=== PATIENT | male | born 1965 | race Hispanic/Latino ===

== ENCOUNTER 2018-02-10 12:52 | Emergency (ER) | payer MEDICAID, OTHER ==
[2018-02-10 12:55] VITALS: BMI 23.3
[2018-02-10 13:03] VITALS: O2SAT 100
[2018-02-10] MEDS ORDERED: Multivitamin (MVI) 10 ML, Thiamine 100 MG, Folic Acid 1 MG in Sodium Chloride 0.9% 1,00... IV STA (13:41)
[2018-02-10] MEDS ORDERED: Sodium Chloride 0.9% 1,000 ML ONE (14:02)
[2018-02-10 14:27] LABS: BASO # 0.1 K/uL (0.0-0.2); BASO % 2.2 % (0.0-2.0); EOS # 0.1 K/uL (0.0-0.7); EOS % 4.2 % (0.0-4.0); HEMOGLOBIN 9.1 g/dL (12.0-18.0); LYMPH # 0.7 K/uL (1.0-4.3); LYMPH % 22.6 % (20.0-40.0); MEAN CELL VOLUME 99.3 fL (80.0-94.0); MEAN CORPUSCULAR HEMOGLOBIN 32.6 pg (27.0-31.0); MEAN CORPUSCULAR HGB CONC 32.9 g/dL (33.0-37.0); MEAN PLATELET VOLUME 8.2 fL (7.2-11.7); MONO # 0.4 K/uL (0.0-0.8); MONO % 12.4 % (0.0-10.0); NEUT # 1.9 K/uL (1.8-7.0); NEUT % 58.6 % (50.0-75.0); NRBC % 0.1 % (0.0-2.0); RBC 2.77 Mil/uL (4.40-5.90); RED CELL DISTRIBUTION WIDTH 19.7 % (11.5-14.5); WHITE BLOOD COUNT 3.3 K/uL (4.8-10.8)
[2018-02-10 14:43] LABS: CALCIUM 7.6 mg/dl (8.6-10.4); GFR AFRICAN-AMERICAN > 60; GFR NON-AFRICAN AMERICAN > 60
--- NOTE | 2018-02-10 15:10 | RAD ---
PROCEDURE: Radiographs of the Chest and Left Ribs. HISTORY: Left chest wall pain/tenderness COMPARISON: Correlation is made to CT scan of the abdomen and pelvis performed 01/27/2018 at [facility]. TECHNIQUE: Frontal radiograph of the chest and multiple oblique radiographs of the left ribs were obtained. FINDINGS: LEFT RIBS: Nondisplaced fractures of the posterior left 10th and 11th ribs. LUNGS: Clear. PLEURA: No pneumothorax or pleural fluid. CARDIOVASCULAR: Normal sized heart. No pulmonary vascular congestion. OTHER FINDINGS: None. IMPRESSION: Nondisplaced fractures of the posterior left 10th and 11th ribs, previously reported on recent CT scan.
[2018-02-10 15:11] LABS: ALB/GLOB RATIO 0.8 (1.0-2.1); ALBUMIN 3.3 g/dL (3.5-5.0); ALT/SGPT 21 U/L (21-72); AST/SGOT 142 U/L (17-59); BLOOD UREA NITROGEN 19 mg/dL (9-20)
[2018-02-10 16:03] LABS: ALB/GLOB RATIO 0.7 (1.0-2.1); ALBUMIN 2.4 g/dL (3.5-5.0); ALT/SGPT 38 U/L (21-72); AST/SGOT 65 U/L (17-59); BLOOD UREA NITROGEN 16 mg/dL (9-20); CALCIUM 7.3 mg/dl (8.6-10.4); GFR AFRICAN-AMERICAN > 60; GFR NON-AFRICAN AMERICAN > 60
--- NOTE | 2018-02-10 16:26 | C.PDOC ---
History Of Present Illness Pt c/o generalized weakness. He states that he had a seizure 3 days ago. Time Seen by Provider: 02/10/18 13:16 Chief Complaint (Nursing): Dizziness/Lightheaded History Per: Patient Onset/Duration Of Symptoms: Days (few) Current Symptoms Are (Timing): Still Present Current Symptoms: Generalized weakness Fall Associated With With Symptoms: No Injury As Result Of Fall Severity: Moderate Additional History Per: Prior Records - Symptoms Of CVA Recent Head Trauma: No Past Medical History Reviewed: Historical Data, Nursing Documentation, Vital Signs Vital Signs: Last Vital Signs Temp 97.9 F 02/10/18 15:27 Pulse 81 02/10/18 15:27 Resp 20 02/10/18 15:27 BP 125/61 02/10/18 15:27 Pulse Ox 100 02/10/18 15:27 - Medical History PMH: Anemia, Back Problems (herniated disc), Deep Vein Thrombosis, Fractures ( rib fx, left shoulder, Left hand 5th digit, Humerus fracture), Gastritis, Pancreatitis, Pneumonia, Seizures, Chronic Pain (left shoulder) Denies: Migraine Other PMH: Liver Cirrhosis Surgical History: Endoscopy - [facility] Procedures ALCOHOL DETOXIFICATION (06/14/15) APPLICATION OF SPLINT (07/16/14) CONTINUOUS INVASIVE MECHANICAL VENTILATION <96 CONSEC HRS (04/13/15) CONTROL BLEEDING IN GASTROINTESTINAL TRACT, ENDO (09/29/17) ENDO EXCISION/DEST OF LESION OR TISSUE OF STOMACH (04/12/15) ESOPHAGOGASTRODUODENOSCOPY [EGD] W/CLOSED BIOPSY (04/19/15) EXCISION OF ESOPHAGOGASTRIC JUNCTION, ENDO, DIAGN (09/29/17) EXCISION OF STOMACH, ENDO, DIAGN (09/29/17) INFUSION OF VASOPRESSOR AGENT (04/12/15) INSPECTION OF UPPER INTESTINAL TRACT, ENDO (10/15/16) INTRA-ABD VENOUS SHUNT (04/13/15) INTRODUCTION OF OTHER THERAPEUTIC SUBSTANCE INTO UP GI, ENDO (09/29/17) NEBULIZER THERAPY (04/13/15) PACKED CELL TRANSFUSION (04/19/15) PHERESIS OF PLATELETS, SINGLE (09/29/17) PLATELET TRANSFUSION (04/12/15) SERUM TRANSFUSION NEC (04/13/15) THERAPEUTIC PLATELETPHERESIS (04/13/15) TRANSFUSE NONAUT FRESH PLASMA IN PERIPH VEIN, PERC (03/15/17) TRANSFUSE NONAUT FROZEN PLASMA IN PERIPH VEIN, PERC (09/29/17) TRANSFUSE NONAUT RED BLOOD CELLS IN PERIPH VEIN, PERC (06/12/17) VENOUS CATHETERIZATION NEC (04/12/15) Family History: States: Unknown Family Hx - Social History Hx Tobacco Use: Yes Hx Alcohol Use: Yes Hx Substance Use: No (DENIES) - Immunization History Hx Tetanus Toxoid Vaccination: Yes Hx Influenza Vaccination: Yes Hx Pneumococcal Vaccination: No Review Of Systems Except As Marked, All Systems Reviewed And Found Negative. Constitutional: Positive for: Weakness, Malaise. Negative for: Fever Cardiovascular: Positive for: Chest Pain (left sided, due to rib fractures) Respiratory: Negative for: Shortness of Breath, Hemoptysis Gastrointestinal: Negative for: Vomiting, Abdominal Pain, Diarrhea Musculoskeletal: Negative for: Neck Pain, Back Pain Skin: Negative for: Rash Neurological: Negative for: Weakness, Numbness, Altered Mental Status Physical Exam - Physical Exam Appears: Non-toxic, No Acute Distress, Chronically Ill Skin: Warm, Dry Head: Atraumatic Eye(s): bilateral: PERRL, EOMI Neck: Normal ROM, No Midline Cervical Tenderness, No Step Off Deformity, Supple Chest: Symmetrical, No Deformity, Tenderness (left sided) Cardiovascular: Rhythm Regular Respiratory: Normal Breath Sounds, No Accessory Muscle Use Gastrointestinal/Abdominal: Soft, No Tenderness Back: No CVA Tenderness, No Vertebral Tenderness Extremity: Normal ROM, No Deformity Neurological/Psych: Oriented x3, No Cerebellar Signs, Normal Motor, Normal Sensation ED Course And Treatment - Laboratory Results Result Diagrams: 02/10/18 14:21 02/10/18 15:45 Lab Interpretation: No Changes Compared To Prior Results O2 Sat by Pulse Oximetry: 100 Pulse Ox Interpretation: Normal - Other Rad Left rib series X-Ray: Viewed By Me, Read By Radiologist Interpretation: IMPRESSION: Nondisplaced fractures of the posterior left 10th and 11th ribs, previously reported on recent CT scan. Progress Note: Pt feels better and wants to go home. He is requesting discharge right now. Reassessment Condition: Improved Disposition Counseled Patient/Family Regarding: Studies Performed, Diagnosis, Need For Followup - Disposition Disposition: HOME/ ROUTINE Disposition Time: 16:28 Condition: IMPROVED Additional Instructions: Avoid alcohol. Follow up with your doctor and your Neurologist for further evaluation and treatment. Return to the ER if you develop worsening of symptoms or if you have any other concerns. Instructions: Generalized Weakness (DC) Forms: [employer] (Sammarinese) - Clinical Impression Clinical Impression: Malaise and fatigue, Fracture of rib of left side
[2018-02-10 16:56] VITALS: BP 124/63; PULSE 76; RESP 18; TEMP 98
== END 2018-02-10 16:55 | disposition home or self-care (01) ==
LOC: C.ER 12:52
DX: R53.81 Other malaise (principal); R53.83 Other fatigue; S22.42XA Multiple fractures of ribs, left side, initial encounter for closed fracture; X58.XXXA Exposure to other specified factors, initial encounter
CPT/HCPCS: 71101; 80053; 80320; 83735; 84100; 84484; 85025; 96374; 99284; J3411; J7040

== ENCOUNTER 2018-03-07 05:24 | Emergency (ER) | payer MEDICAID ==
[2018-03-07 05:24] VITALS: BMI 23.7
[2018-03-07] MEDS ORDERED: Lidocaine 5% Patch TD STA (05:51)
[2018-03-07 05:52] VITALS: O2SAT 99
--- NOTE | 2018-03-07 05:55 | C.PDOC ---
History Of Present Illness 52 year old male with history of herniated disks and chronic back pain presents to ED with complaints of right sided lower back pain. He reports pain is worse with movement. Additionally patient states he needs dose of seizure medication, last took dose yesterday. Denies dysuria, hematuria, incontinence, saddle paresthesias, abdominal pain, fever or recent injury. Time Seen by Provider: 03/07/18 05:47 Chief Complaint (Nursing): Back Pain History Per: Patient History/Exam Limitations: no limitations Past Medical History Reviewed: Historical Data, Nursing Documentation, Vital Signs Vital Signs: Last Vital Signs Temp 98.4 F 03/07/18 05:34 Pulse 85 03/07/18 05:34 Resp 18 03/07/18 05:34 BP 129/77 03/07/18 05:34 Pulse Ox 99 03/07/18 05:58 - Medical History PMH: Anemia, Back Problems (herniated disc), Deep Vein Thrombosis, Fractures ( rib fx, left shoulder, Left hand 5th digit, Humerus fracture), Gastritis, Pancreatitis, Seizures, Chronic Pain (left shoulder) Surgical History: Endoscopy - [facility] Procedures ALCOHOL DETOXIFICATION (06/14/15) APPLICATION OF SPLINT (07/16/14) CONTINUOUS INVASIVE MECHANICAL VENTILATION <96 CONSEC HRS (04/13/15) CONTROL BLEEDING IN GASTROINTESTINAL TRACT, ENDO (09/29/17) ENDO EXCISION/DEST OF LESION OR TISSUE OF STOMACH (04/12/15) ESOPHAGOGASTRODUODENOSCOPY [EGD] W/CLOSED BIOPSY (04/19/15) EXCISION OF ESOPHAGOGASTRIC JUNCTION, ENDO, DIAGN (09/29/17) EXCISION OF STOMACH, ENDO, DIAGN (09/29/17) INFUSION OF VASOPRESSOR AGENT (04/12/15) INSPECTION OF UPPER INTESTINAL TRACT, ENDO (10/15/16) INTRA-ABD VENOUS SHUNT (04/13/15) INTRODUCTION OF OTHER THERAPEUTIC SUBSTANCE INTO UP GI, ENDO (09/29/17) NEBULIZER THERAPY (04/13/15) PACKED CELL TRANSFUSION (04/19/15) PHERESIS OF PLATELETS, SINGLE (09/29/17) PLATELET TRANSFUSION (04/12/15) SERUM TRANSFUSION NEC (04/13/15) THERAPEUTIC PLATELETPHERESIS (04/13/15) TRANSFUSE NONAUT FRESH PLASMA IN PERIPH VEIN, PERC (03/15/17) TRANSFUSE NONAUT FROZEN PLASMA IN PERIPH VEIN, PERC (09/29/17) TRANSFUSE NONAUT FROZEN RED CELLS IN PERIPH VEIN, PERC (02/21/18) TRANSFUSE NONAUT RED BLOOD CELLS IN PERIPH VEIN, PERC (02/21/18) VENOUS CATHETERIZATION NEC (04/12/15) Family History: States: Unknown Family Hx - Social History Hx Tobacco Use: Yes Hx Alcohol Use: Yes Hx Substance Use: No (DENIES) Review Of Systems Musculoskeletal: Positive for: Back Pain Physical Exam - Physical Exam Appears: Non-toxic, No Acute Distress Skin: No Rash, No Ecchymosis Head: Atraumatic Eye(s): bilateral: Normal Inspection Neck: Normal ROM Chest: Symmetrical Cardiovascular: No Murmur Respiratory: Normal Breath Sounds, No Accessory Muscle Use, No Wheezing Gastrointestinal/Abdominal: Soft Back: Normal Inspection, Paraspinal Tenderness (paralumbar tenderness) Extremity: Bilateral: Atraumatic, Normal ROM Neurological/Psych: Oriented x3 Gait: Steady ED Course And Treatment O2 Sat by Pulse Oximetry: 99 Medical Decision Making Medical Decision Making: Impression: back pain, medication refill Prior records reviewed: patient has multiple ER visits for various complaints, usually bed seeking and medication seeking. Plan: Keppra PO, Tylenol, Flexeril, Lidoderm patch Patient remained sleeping on stretcher in no distress. He was then asking for Ativan, stating he wants to sleep. Patient is not intoxicated and stable for discharge. Provide list of local shelters. Disposition Counseled Patient/Family Regarding: Diagnosis, Need For Followup - Disposition Referrals: Loki Patel APN [Primary Care Provider] - Disposition: HOME/ ROUTINE Disposition Time: 06:20 Condition: STABLE Instructions: Low Back Pain (DC) Forms: [employer] (Hungarian) - POA Present On Arrival: None - Clinical Impression Clinical Impression: Low back pain
[2018-03-07 07:02] VITALS: BP 120/80; PULSE 70; RESP 14; TEMP 97.5
== END 2018-03-07 07:02 | disposition home or self-care (01) ==
LOC: C.ER 05:24 → SUPCPDRO 05:24 → C.ER 07:02
DX: M54.5 Low back pain (principal)

== ENCOUNTER 2018-03-20 09:55 | Emergency (ER) | payer MEDICAID ==
[2018-03-20 10:05] VITALS: RESP 20; O2SAT 97
[2018-03-20 10:45] LABS: BASO # 0.1 K/uL (0.0-0.2); EOS # 0.5 K/uL (0.0-0.7); EOS % 6.2 % (0.0-4.0); HEMOGLOBIN 9.3 g/dL (12.0-18.0); LYMPH # 1.9 K/uL (1.0-4.3); LYMPH % 21.9 % (20.0-40.0); MEAN CORPUSCULAR HEMOGLOBIN 28.5 pg (27.0-31.0); MEAN PLATELET VOLUME 7.3 fL (7.2-11.7); NEUT % 58.9 % (50.0-75.0); RBC 3.27 Mil/uL (4.40-5.90); RED CELL DISTRIBUTION WIDTH 19.8 % (11.5-14.5)
[2018-03-20 10:46] LABS: MEAN CELL VOLUME 86.5 fL (80.0-94.0); WHITE BLOOD COUNT 8.5 K/uL (4.8-10.8)
[2018-03-20 10:48] LABS: ALB/GLOB RATIO 0.7 (1.0-2.1); ALT/SGPT 44 U/L (21-72); AST/SGOT 112 U/L (17-59); BLOOD UREA NITROGEN 13 mg/dL (9-20); CALCIUM 8.1 mg/dl (8.6-10.4); GFR AFRICAN-AMERICAN > 60; GFR NON-AFRICAN AMERICAN > 60
[2018-03-20 11:34] LABS: INR 1.5; PROTHROMBIN TIME 17.7 SECONDS (9.7-12.2)
[2018-03-20 13:11] VITALS: BP 108/63; PULSE 86; TEMP 97.9
--- NOTE | 2018-03-20 13:20 | C.PDOC ---
History Of Present Illness 52 y/o male presents to the ER for evaluation of vomiting blood. Patient was seen in [facility] for seizures yesterday, denies having seizures today. He was given Keppra and discharged home. Of note, patient has visited the ER with similar presentations and discharged home in the past. Time Seen by Provider: 03/20/18 10:48 Chief Complaint (Nursing): Seizure History Per: Patient History/Exam Limitations: no limitations Severity: Moderate Past Medical History Reviewed: Historical Data, Nursing Documentation, Vital Signs Vital Signs: Last Vital Signs Temp 97.9 F 03/20/18 13:11 Pulse 86 03/20/18 13:11 Resp 20 03/20/18 13:11 BP 108/63 03/20/18 13:11 Pulse Ox 97 03/20/18 16:24 - Medical History PMH: Anemia, Back Problems (herniated disc), Deep Vein Thrombosis, Fractures ( rib fx, left shoulder, Left hand 5th digit, Humerus fracture), Gastritis, Pancreatitis, Seizures (Patient takes Keppra for seizures), Chronic Pain (left shoulder) Denies: HIV, Chronic Kidney Disease Surgical History: Endoscopy - [facility] Procedures ALCOHOL DETOXIFICATION (06/14/15) APPLICATION OF SPLINT (07/16/14) CONTINUOUS INVASIVE MECHANICAL VENTILATION <96 CONSEC HRS (04/13/15) CONTROL BLEEDING IN GASTROINTESTINAL TRACT, ENDO (09/29/17) ENDO EXCISION/DEST OF LESION OR TISSUE OF STOMACH (04/12/15) ESOPHAGOGASTRODUODENOSCOPY [EGD] W/CLOSED BIOPSY (04/19/15) EXCISION OF ESOPHAGOGASTRIC JUNCTION, ENDO, DIAGN (09/29/17) EXCISION OF STOMACH, ENDO, DIAGN (09/29/17) INFUSION OF VASOPRESSOR AGENT (04/12/15) INSPECTION OF UPPER INTESTINAL TRACT, ENDO (10/15/16) INTRA-ABD VENOUS SHUNT (04/13/15) INTRODUCTION OF OTHER THERAPEUTIC SUBSTANCE INTO UP GI, ENDO (09/29/17) NEBULIZER THERAPY (04/13/15) PACKED CELL TRANSFUSION (04/19/15) PHERESIS OF PLATELETS, SINGLE (09/29/17) PLATELET TRANSFUSION (04/12/15) SERUM TRANSFUSION NEC (04/13/15) THERAPEUTIC PLATELETPHERESIS (04/13/15) TRANSFUSE NONAUT FRESH PLASMA IN PERIPH VEIN, PERC (03/15/17) TRANSFUSE NONAUT FROZEN PLASMA IN PERIPH VEIN, PERC (09/29/17) TRANSFUSE NONAUT FROZEN RED CELLS IN PERIPH VEIN, PERC (02/21/18) TRANSFUSE NONAUT RED BLOOD CELLS IN PERIPH VEIN, PERC (02/21/18) VENOUS CATHETERIZATION NEC (04/12/15) Family History: States: No Known Family Hx - Social History Hx Tobacco Use: Yes Hx Alcohol Use: Yes Hx Substance Use: No (DENIES) - Immunization History Hx Tetanus Toxoid Vaccination: Yes Hx Influenza Vaccination: Yes Hx Pneumococcal Vaccination: (unk) Review Of Systems Except As Marked, All Systems Reviewed And Found Negative. Constitutional: Negative for: Fever, Chills Gastrointestinal: Positive for: Other (vomiting blood). Negative for: Vomiting , Abdominal Pain, Diarrhea Physical Exam - Physical Exam Appears: Non-toxic, No Acute Distress Skin: Normal Color, Warm, Dry Head: Atraumatic, Normacephalic Eye(s): bilateral: Normal Inspection Nose: Normal Oral Mucosa: Moist Neck: Supple Chest: Symmetrical Cardiovascular: Rhythm Regular Respiratory: Normal Breath Sounds, No Rales, No Rhonchi, No Wheezing Gastrointestinal/Abdominal: Normal Exam, Bowel Sounds ((+) bowel sounds), Soft, No Tenderness, No Guarding, No Rebound Neurological/Psych: Oriented x3, Normal Speech Gait: Steady ED Course And Treatment - Laboratory Results Result Diagrams: 03/20/18 10:32 03/20/18 10:32 O2 Sat by Pulse Oximetry: 97 (RA) Pulse Ox Interpretation: Normal Medical Decision Making Medical Decision Making: Plan: --Labs --Keppra PO --Protonix IV Updates: Labs show elevated ETOH levels. Patient has been observed for 3 hours in ER. There was no vomiting and seizure like activity observed.Patient is able to tolerate PO diet and Keppra PO. He is ambulatory without ataxia. He has been discharged and told to follow up with medical clinic in 2 days. Disposition Counseled Patient/Family Regarding: Studies Performed, Diagnosis, Need For Followup, Rx Given - Disposition Disposition: HOME/ ROUTINE Disposition Time: 13:27 Condition: IMPROVED Additional Instructions: follow up with your doctor in 2 days call to make an appointment take medications as prescribed return to the hospital if symptoms worsens or progress Instructions: Alcohol Abuse and Alcoholism (DC) Forms: [employer] (Sao Tomean), General Discharge Instructions - Clinical Impression Clinical Impression: EtOH dependence - Scribe Statement The provider has reviewed the documentation as recorded by the Scribe Shanti Waters Provider Attestation: All medical record entries made by the Scribe were at my direction and personally dictated by me. I have reviewed the chart and agree that the record accurately reflects my personal performance of the history, physical exam, medical decision making, and the department course for this patient. I have also personally directed, reviewed, and agree with the discharge instructions and disposition.
== END 2018-03-20 13:53 | disposition home or self-care (01) ==
LOC: C.ER 09:55
DX: F10.20 Alcohol dependence, uncomplicated (principal); Y90.6 Blood alcohol level of 120-199 mg/100 ml
CPT/HCPCS: 80053; 80320; 85025; 85610; 85730; 96374; 99285; C9113

== ENCOUNTER 2018-03-21 01:45 | Emergency (ER) | payer MEDICAID ==
--- NOTE | 2018-03-21 02:36 | C.PDOC ---
History Of Present Illness 52 year old male presents to the ER requesting a dose of his keppra. Patient states he had two seizures earlier tonight and was seen in at [facility] afterwards, however he left before receiving his keppra. Patient also complains of a headache because he is hungry and they did not feed him at [place]. Patient asking for food and place to sleep. Time Seen by Provider: 03/21/18 02:24 Chief Complaint (Nursing): Seizure History Per: Patient History/Exam Limitations: no limitations Recent Seizure Activity Began: Hours Ago: Number Of Seizures: Multiple Length Of Seizures (Duration): Unknown Precipitating Factor(s): Other (not known) Recent travel outside of the [place]: No Past Medical History Reviewed: Historical Data, Nursing Documentation, Vital Signs Vital Signs: Last Vital Signs Temp 98.2 F 03/21/18 04:59 Pulse 80 03/21/18 04:59 Resp 18 03/21/18 04:59 BP 120/64 03/21/18 04:59 Pulse Ox 98 03/21/18 05:40 - Medical History PMH: Anemia, Back Problems (herniated disc), Deep Vein Thrombosis, Fractures ( rib fx, left shoulder, Left hand 5th digit, Humerus fracture), Gastritis, Seizures (Patient takes Keppra for seizures), Chronic Pain (left shoulder) Surgical History: Endoscopy - [facility] Procedures ALCOHOL DETOXIFICATION (06/14/15) APPLICATION OF SPLINT (07/16/14) CONTINUOUS INVASIVE MECHANICAL VENTILATION <96 CONSEC HRS (04/13/15) CONTROL BLEEDING IN GASTROINTESTINAL TRACT, ENDO (09/29/17) ENDO EXCISION/DEST OF LESION OR TISSUE OF STOMACH (04/12/15) ESOPHAGOGASTRODUODENOSCOPY [EGD] W/CLOSED BIOPSY (04/19/15) EXCISION OF ESOPHAGOGASTRIC JUNCTION, ENDO, DIAGN (09/29/17) EXCISION OF STOMACH, ENDO, DIAGN (09/29/17) INFUSION OF VASOPRESSOR AGENT (04/12/15) INSPECTION OF UPPER INTESTINAL TRACT, ENDO (10/15/16) INTRA-ABD VENOUS SHUNT (04/13/15) INTRODUCTION OF OTHER THERAPEUTIC SUBSTANCE INTO UP GI, ENDO (09/29/17) NEBULIZER THERAPY (04/13/15) PACKED CELL TRANSFUSION (04/19/15) PHERESIS OF PLATELETS, SINGLE (09/29/17) PLATELET TRANSFUSION (04/12/15) SERUM TRANSFUSION NEC (04/13/15) THERAPEUTIC PLATELETPHERESIS (04/13/15) TRANSFUSE NONAUT FRESH PLASMA IN PERIPH VEIN, PERC (03/15/17) TRANSFUSE NONAUT FROZEN PLASMA IN PERIPH VEIN, PERC (09/29/17) TRANSFUSE NONAUT FROZEN RED CELLS IN PERIPH VEIN, PERC (02/21/18) TRANSFUSE NONAUT RED BLOOD CELLS IN PERIPH VEIN, PERC (02/21/18) VENOUS CATHETERIZATION NEC (04/12/15) Family History: States: Unknown Family Hx - Social History Hx Tobacco Use: Yes Hx Alcohol Use: Yes Hx Substance Use: No (DENIES) - Immunization History Hx Tetanus Toxoid Vaccination: Yes Review Of Systems Constitutional: Negative for: Fever, Chills Eyes: Negative for: Vision Change Gastrointestinal: Negative for: Nausea, Vomiting Neurological: Positive for: Seizures, Headache. Negative for: Weakness, Numbness, Dizziness Physical Exam - Physical Exam Appears: Non-toxic Skin: Normal Color, Warm, Dry Head: Atraumatic, Normacephalic, No Tenderness, No Swelling, No Abrasion, No Laceration Eye(s): bilateral: Normal Inspection, EOMI Oral Mucosa: Moist Neck: Normal ROM Chest: Symmetrical, No Tenderness Cardiovascular: Rhythm Regular Respiratory: Normal Breath Sounds, No Rales, No Rhonchi, No Wheezing Extremity: Bilateral: Atraumatic, Normal ROM Neurological/Psych: Oriented x3, Normal Speech, Other (No focal deficits) ED Course And Treatment O2 Sat by Pulse Oximetry: 98 (Room air) Pulse Ox Interpretation: Normal Medical Decision Making Medical Decision Making: Patient with history of seizures and multiple ER visits for medication and bed seeking. He has been back and forth between [facility]. 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 Patient remained well no seizure activity during ED observation. Vitals are stable. Patient to be discharged with instructions to follow up with neurologist as scheduled. Disposition Counseled Patient/Family Regarding: Diagnosis, Need For Followup - Disposition [facility] [[facility]] Disposition: HOME/ ROUTINE Disposition Time: 05:20 Condition: STABLE Additional Instructions: Follow up with the clinic in 2-5 days for further evaluation. Return to the emergency department at any time if symptoms persist or worsen. Instructions: Seizures, Adult (DC) Forms: [employer] (Irish) - POA Present On Arrival: None - Clinical Impression Clinical Impression: Seizure disorder - PA / SALVAGE CUTTER / Resident Statement MD/DO has reviewed & agrees with the documentation as recorded. - Scribe Statement The provider has reviewed the documentation as recorded by the Scribe Baldemar Crow All medical record entries made by the Scribe were at my direction and personally dictated by me. I have reviewed the chart and agree that the record accurately reflects my personal performance of the history, physical exam, medical decision making, and the department course for this patient. I have also personally directed, reviewed, and agree with the discharge instructions and disposition.
[2018-03-21 05:00] VITALS: BP 120/64; PULSE 80; RESP 18; TEMP 98.2
[2018-03-21 05:21] VITALS: O2SAT 98
== END 2018-03-21 05:38 | disposition home or self-care (01) ==
LOC: C.ER 01:45
DX: G40.909 Epilepsy, unspecified, not intractable, without status epilepticus (principal); Z72.0 Tobacco use

== ENCOUNTER 2018-03-25 00:37 | Emergency (ER) | payer MEDICAID ==
[2018-03-25 00:37] VITALS: BMI 25.3
[2018-03-25 03:14] VITALS: RESP 18; TEMP 98
--- NOTE | 2018-03-25 04:07 | C.PDOC ---
History Of Present Illness Pt was BIBEMS for c/o of vomiting blood as well as passing blood in stools x today. Pt reports having two shots of ?whiskey only today. Pt denies abdominal pain, no active vomiting, no black stools, fever, dizziness or weakness. Time Seen by Provider: 03/25/18 01:57 Chief Complaint (Nursing): GI Problem History Per: Patient History/Exam Limitations: no limitations Past Medical History Vital Signs: Last Vital Signs Temp 98 F 03/25/18 05:05 Pulse 76 03/25/18 05:05 Resp 18 03/25/18 05:05 BP 132/86 03/25/18 05:05 Pulse Ox 97 03/25/18 05:17 - Medical History PMH: Anemia, Back Problems (herniated disc), Deep Vein Thrombosis, Fractures ( rib fx, left shoulder, Left hand 5th digit, Humerus fracture), Gastritis, Seizures, Chronic Pain (left shoulder) Denies: Chronic Kidney Disease Surgical History: Endoscopy - [facility] Procedures ALCOHOL DETOXIFICATION (06/14/15) APPLICATION OF SPLINT (07/16/14) CONTINUOUS INVASIVE MECHANICAL VENTILATION <96 CONSEC HRS (04/13/15) CONTROL BLEEDING IN GASTROINTESTINAL TRACT, ENDO (09/29/17) ENDO EXCISION/DEST OF LESION OR TISSUE OF STOMACH (04/12/15) ESOPHAGOGASTRODUODENOSCOPY [EGD] W/CLOSED BIOPSY (04/19/15) EXCISION OF ESOPHAGOGASTRIC JUNCTION, ENDO, DIAGN (09/29/17) EXCISION OF STOMACH, ENDO, DIAGN (09/29/17) INFUSION OF VASOPRESSOR AGENT (04/12/15) INSPECTION OF UPPER INTESTINAL TRACT, ENDO (10/15/16) INTRA-ABD VENOUS SHUNT (04/13/15) INTRODUCTION OF OTHER THERAPEUTIC SUBSTANCE INTO UP GI, ENDO (09/29/17) NEBULIZER THERAPY (04/13/15) PACKED CELL TRANSFUSION (04/19/15) PHERESIS OF PLATELETS, SINGLE (09/29/17) PLATELET TRANSFUSION (04/12/15) SERUM TRANSFUSION NEC (04/13/15) THERAPEUTIC PLATELETPHERESIS (04/13/15) TRANSFUSE NONAUT FRESH PLASMA IN PERIPH VEIN, PERC (03/15/17) TRANSFUSE NONAUT FROZEN PLASMA IN PERIPH VEIN, PERC (09/29/17) TRANSFUSE NONAUT FROZEN RED CELLS IN PERIPH VEIN, PERC (02/21/18) TRANSFUSE NONAUT RED BLOOD CELLS IN PERIPH VEIN, PERC (02/21/18) VENOUS CATHETERIZATION NEC (04/12/15) Family History: States: Unknown Family Hx - Social History Hx Tobacco Use: Yes Hx Alcohol Use: Yes Hx Substance Use: No - Immunization History Hx Tetanus Toxoid Vaccination: Yes Review Of Systems Constitutional: Negative for: Fever Respiratory: Negative for: Shortness of Breath Gastrointestinal: Positive for: Vomiting (blood), Hematochezia. Negative for: Abdominal Pain, Melena Neurological: Negative for: Dizziness Physical Exam - Physical Exam Appears: Non-toxic, Other ((+) AOB) Eye(s): bilateral: Normal Inspection, PERRL, EOMI Cardiovascular: Rhythm Regular Respiratory: Normal Breath Sounds Gastrointestinal/Abdominal: Normal Exam, No Tenderness, No Distention, No Guarding Rectal: Deferred (pt refused) Extremity: Normal ROM Neurological/Psych: Oriented x3 Gait: Steady ED Course And Treatment O2 Sat by Pulse Oximetry: 97 Pulse Ox Interpretation: Normal Progress Note: Upon reviewing this pt's chart, pt is found to be well known to [facility] and has been seen 3x in less than24 hrs for same c/o with full work up. Pt was recently d/c around [address] to [place]. Pt with h/o of chronic alcohol abuse, liver cirrhosis, pancreatitis, is currently on pepcid and protonix. and was observed drinking juice in ED with no active vomiting. Pt is stable and has been comfortably sleeping in ED with stable vitals. Pt advised to continue current meds and to follow up with PMD Reassessment Condition: Improved Disposition - Disposition Disposition: HOME/ ROUTINE Disposition Time: 04:58 Condition: STABLE Additional Instructions: Increase PO fluids Continue meds as directed Return to ER if worse Instructions: Alcohol Abuse and Alcoholism (DC) Forms: [employer] (Slovak) - Clinical Impression Clinical Impression: Alcohol abuse, Chronic anemia
[2018-03-25 05:05] VITALS: BP 132/86; PULSE 76
[2018-03-25 05:15] VITALS: O2SAT 97
== END 2018-03-25 05:25 | disposition home or self-care (01) ==
LOC: C.ER 00:37
DX: F10.10 Alcohol abuse, uncomplicated (principal); D64.9 Anemia, unspecified; Y90.9 Presence of alcohol in blood, level not specified

== ENCOUNTER 2018-04-03 19:20 | Emergency (ER) | payer MEDICAID ==
[2018-04-03 19:21] VITALS: BMI 25.3
[2018-04-03 19:28] VITALS: PULSE 96; RESP 20; TEMP 98.8; O2SAT 95
--- NOTE | 2018-04-03 19:48 | C.PDOC ---
History Of Present Illness 52 year old male is brought to the ED by ambulance for evaluation after patient reportedly had a seizure at [facility] prior to arrival. Upon arrival, patient's symptoms appear more indicative of alcohol withdrawal. Patient is taking Keppra at bedside and is requesting food to eat. Patient was evaluated in [place] ED yesterday and early this morning. Patient is well-known for bed- seeking behavior. He denies any other complaints at this time. Patient's discharge summary from 04/01 was reviewed. Patient was admitted to [facility] [place] for alcohol withdrawal seizures and altered mental status. Patient did not have any seizures while he was admitted. Patient signed out AMA and was discharge with advice to continue with Keppra 500mg PO BID. No new Rx given upon AMA discharge. Time Seen by Provider: 04/03/18 19:38 Chief Complaint (Nursing): Medical Clearance History Per: EMS History/Exam Limitations: intoxication Onset/Duration Of Symptoms: Hrs Current Symptoms Are (Timing): Still Present Additional History Per: EMS Past Medical History Reviewed: Historical Data, Nursing Documentation, Vital Signs Vital Signs: Last Vital Signs Temp 98.8 F 04/03/18 19:22 Pulse 96 H 04/03/18 19:22 Resp 20 04/03/18 19:22 BP 110/68 04/03/18 20:00 Pulse Ox 95 04/03/18 23:50 - Medical History PMH: Anemia, Back Problems (herniated disc), Deep Vein Thrombosis, Fractures ( rib fx, left shoulder, Left hand 5th digit, Humerus fracture), Gastritis, Seizures, Chronic Pain (left shoulder) Denies: Chronic Kidney Disease Surgical History: Endoscopy - [facility] Procedures ALCOHOL DETOXIFICATION (06/14/15) APPLICATION OF SPLINT (07/16/14) CONTINUOUS INVASIVE MECHANICAL VENTILATION <96 CONSEC HRS (04/13/15) CONTROL BLEEDING IN GASTROINTESTINAL TRACT, ENDO (09/29/17) ENDO EXCISION/DEST OF LESION OR TISSUE OF STOMACH (04/12/15) ESOPHAGOGASTRODUODENOSCOPY [EGD] W/CLOSED BIOPSY (04/19/15) EXCISION OF ESOPHAGOGASTRIC JUNCTION, ENDO, DIAGN (09/29/17) EXCISION OF ESOPHAGUS, ENDO, DIAGN (03/13/18) EXCISION OF STOMACH, ENDO, DIAGN (03/13/18) INFUSION OF VASOPRESSOR AGENT (04/12/15) INSPECTION OF UPPER INTESTINAL TRACT, ENDO (10/15/16) INTRA-ABD VENOUS SHUNT (04/13/15) INTRODUCTION OF OTHER THERAPEUTIC SUBSTANCE INTO UP GI, ENDO (09/29/17) NEBULIZER THERAPY (04/13/15) PACKED CELL TRANSFUSION (04/19/15) PHERESIS OF PLATELETS, SINGLE (09/29/17) PLATELET TRANSFUSION (04/12/15) SERUM TRANSFUSION NEC (04/13/15) THERAPEUTIC PLATELETPHERESIS (04/13/15) TRANSFUSE NONAUT FRESH PLASMA IN PERIPH VEIN, PERC (03/15/17) TRANSFUSE NONAUT FROZEN PLASMA IN PERIPH VEIN, PERC (09/29/17) TRANSFUSE NONAUT FROZEN RED CELLS IN PERIPH VEIN, PERC (02/21/18) TRANSFUSE NONAUT RED BLOOD CELLS IN PERIPH VEIN, PERC (03/30/18) VENOUS CATHETERIZATION NEC (04/12/15) Family History: States: Unknown Family Hx - Social History Hx Tobacco Use: Yes Hx Alcohol Use: Yes Hx Substance Use: No (patient denies) - Immunization History Hx Tetanus Toxoid Vaccination: Yes Review Of Systems Psych: Positive for: Other (EtOH intoxication ) Physical Exam - Physical Exam Appears: Non-toxic, No Acute Distress, Other (visibly intoxicated ) Skin: Warm, Dry Head: Atraumatic, Normacephalic Eye(s): bilateral: Normal Inspection Oral Mucosa: Moist, Other (alcohol on breath) Neck: Supple Chest: Symmetrical, No Deformity, No Tenderness Cardiovascular: Rhythm Regular, No Murmur Respiratory: Normal Breath Sounds, No Rales, No Rhonchi, No Wheezing Extremity: Normal ROM, Capillary Refill (less than 2 seconds ) Neurological/Psych: Other (arousable to touch and verbal stimuli ) ED Course And Treatment O2 Sat by Pulse Oximetry: 95 (on RA) Pulse Ox Interpretation: Normal Medical Decision Making Medical Decision Making: alcohol intox, no new issues now Seen in [facility] ED twice in past 24 hours, non-compliant w evals Admitted and d/c 03/28- so only 2 days post discharge bed seeking/malingering Disposition Doctor Will See Patient In The: Office Counseled Patient/Family Regarding: Studies Performed, Diagnosis - Disposition Referrals: Alcoholics Anonymous [Outside] [facility] [Outside] [facility] [Outside] [facility] [Outside] Disposition: HOME/ ROUTINE Disposition Time: 19:50 Condition: GOOD Additional Instructions: seek nightly long term placement take your normal seizure meds Avoid alcohol abuse Seek AA Seek outpatient psych counseling. Instructions: Alcohol Abuse and Alcoholism (DC) Forms: [employer] (Setswana) - Clinical Impression Clinical Impression: Alcohol abuse, Malingerer [conscious simulation] - Scribe Statement The provider has reviewed the documentation as recorded by the Scribe (Michell Hi) Provider Attestation: All medical record entries made by the Scribe were at my direction and personally dictated by me. I have reviewed the chart and agree that the record accurately reflects my personal performance of the history, physical exam, medical decision making, and the department course for this patient. I have also personally directed, reviewed, and agree with the discharge instructions and disposition.
[2018-04-03 20:01] VITALS: BP 110/68
== END 2018-04-03 20:00 | disposition home or self-care (01) ==
LOC: C.ER 19:20
DX: F10.10 Alcohol abuse, uncomplicated (principal); Z76.5 Malingerer [conscious simulation]; Z72.0 Tobacco use

== ENCOUNTER 2018-04-06 12:05 | Inpatient (IN) | payer MEDICAID ==
--- NOTE | 2018-04-06 12:21 | C.PDOC ---
History Of Present Illness <Talia Oconnor - Last Filed: 04/06/18 18:47> <Shade Holden - Last Filed: 04/06/18 23:48> 52 year old male presents to the emergency department after being brought in by EMS. Patient reported an unwitnessed seizure that he experienced and proceeded to call the EMS. Patient denies trauma and offers no other complaints. Patient history is limited due to him being a poor historian. LIMITED DUE TO POOR HISTORIAN PER EMS, WERE FLAGGED DOWN FOR PT SELF REPORTED SZ. UNWITNESSED. PT OFFERES NO OTHER COMPLAINTS. ATRAUM. EXAM NEG MDM PT WELL KNOWN HERE AND @ [facility], [facility] AND BED-SEEKING. [facility] VISITS THIS MONTH FOR SAME COMPLAINTS (Talia Oconnor) History Per: Patient History/Exam Limitations: other (poor historian) Onset/Duration Of Symptoms: Hrs <Talia Oconnor - Last Filed: 04/06/18 18:47> <Shade Holden - Last Filed: 04/06/18 23:48> Chief Complaint (Nursing): Seizure Past Medical History Reviewed: Historical Data, Nursing Documentation, Vital Signs - Medical History PMH: Anemia, Back Problems (herniated disc), Deep Vein Thrombosis, Fractures ( rib fx, left shoulder, Left hand 5th digit, Humerus fracture), Gastritis, Seizures, Chronic Pain (left shoulder) Denies: Chronic Kidney Disease Surgical History: Endoscopy Family History: States: No Known Family Hx - Social History Hx Tobacco Use: Yes Hx Alcohol Use: Yes Hx Substance Use: No (patient denies) - Immunization History Hx Tetanus Toxoid Vaccination: Yes <Talia Oconnor - Last Filed: 04/06/18 18:47> Vital Signs: Last Vital Signs Temp 100.6 F H 04/06/18 22:54 Pulse 88 04/06/18 22:54 Resp 18 04/06/18 22:54 BP 130/65 04/06/18 22:54 Pulse Ox 96 04/06/18 22:54 - [facility] Procedures ALCOHOL DETOXIFICATION (06/14/15) APPLICATION OF SPLINT (07/16/14) CONTINUOUS INVASIVE MECHANICAL VENTILATION <96 CONSEC HRS (04/13/15) CONTROL BLEEDING IN GASTROINTESTINAL TRACT, ENDO (09/29/17) ENDO EXCISION/DEST OF LESION OR TISSUE OF STOMACH (04/12/15) ESOPHAGOGASTRODUODENOSCOPY [EGD] W/CLOSED BIOPSY (04/19/15) EXCISION OF ESOPHAGOGASTRIC JUNCTION, ENDO, DIAGN (09/29/17) EXCISION OF ESOPHAGUS, ENDO, DIAGN (03/13/18) EXCISION OF STOMACH, ENDO, DIAGN (03/13/18) INFUSION OF VASOPRESSOR AGENT (04/12/15) INSPECTION OF UPPER INTESTINAL TRACT, ENDO (10/15/16) INTRA-ABD VENOUS SHUNT (04/13/15) INTRODUCTION OF OTHER THERAPEUTIC SUBSTANCE INTO UP GI, ENDO (09/29/17) NEBULIZER THERAPY (04/13/15) PACKED CELL TRANSFUSION (04/19/15) PHERESIS OF PLATELETS, SINGLE (09/29/17) PLATELET TRANSFUSION (04/12/15) SERUM TRANSFUSION NEC (04/13/15) THERAPEUTIC PLATELETPHERESIS (04/13/15) TRANSFUSE NONAUT FRESH PLASMA IN PERIPH VEIN, PERC (03/15/17) TRANSFUSE NONAUT FROZEN PLASMA IN PERIPH VEIN, PERC (09/29/17) TRANSFUSE NONAUT FROZEN RED CELLS IN PERIPH VEIN, PERC (02/21/18) TRANSFUSE NONAUT RED BLOOD CELLS IN PERIPH VEIN, PERC (03/30/18) VENOUS CATHETERIZATION NEC (04/12/15) Review Of Systems Except As Marked, All Systems Reviewed And Found Negative. Constitutional: Negative for: Fever, Chills, Other (trauma) Eyes: Negative for: Vision Change Cardiovascular: Negative for: Palpitations Respiratory: Negative for: Shortness of Breath Gastrointestinal: Negative for: Nausea <Talia Oconnor Last Filed: 04/06/18 18:47> Physical Exam - Physical Exam Appears: Non-toxic, No Acute Distress Skin: Warm, Dry Head: Atraumatic Eye(s): bilateral: Normal Inspection Chest: Symmetrical Cardiovascular: Rhythm Regular Respiratory: Normal Breath Sounds, No Rales, No Rhonchi, No Wheezing Gastrointestinal/Abdominal: Normal Exam, Soft, No Tenderness, No Guarding, No Rebound Back: Normal Inspection Extremity: Normal ROM Neurological/Psych: Oriented x3, Normal Speech, Normal Cognition <Talia Oconnor Last Filed: 04/06/18 18:47> ED Course And Treatment Progress Note: Plan: Keep NPO except medications <Talia Oconnor Last Filed: 04/06/18 18:47> - Laboratory Results Result Diagrams: 04/06/18 20:46 04/06/18 20:46 <Shade Holden - Last Filed: 04/06/18 23:48> Progress - Data Reviewed Data Reviewed: Old records <Talia Oconnor - Last Filed: 04/06/18 18:47> <Shade Holden - Last Filed: 04/06/18 23:48> - Re-Evaluation Re-evaluation Note: 04/06/18 14:24 NARD SLEEPING. NO NOTED SZ ACTIVITY 04/06/18 17:58 PERSIST UNSTEADY GAIT. (ElvinTalia) Medical Decision Making <Talia Oconnor - Last Filed: 04/06/18 18:47> <Shade Holden - Last Filed: 04/06/18 23:48> Medical Decision Making: The patient is well known at [facility] as well as [facility]. Patient is known for malingering and bed-seeking with multiple ED visits this month for the same complaints. (Talia Oconnor) Disposition - Disposition Disposition Time: 19:00 <Talia Oconnor - Last Filed: 04/06/18 18:47> Discussed With : Zack Langley Doctor Will See Patient In The: Hospital Counseled Patient/Family Regarding: Diagnosis - Disposition Disposition Time: 23:48 <Shade Holden - Last Filed: 04/06/18 23:48> - Disposition Disposition: HOSPITALIZED Condition: STABLE Forms: [facility] ([place]) - Clinical Impression Clinical Impression: Unsteady gait, Cerebral atrophy - Scribe Statement The provider has reviewed the documentation as recorded by the Scribe (Mauricio Tl) <Talia Oconnor - Last Filed: 04/06/18 18:47> <Shade Holden - Last Filed: 04/06/18 23:48> - Scribe Statement Provider Attestation: All medical record entries made by the Scribe were at my direction and personally dictated by me. I have reviewed the chart and agree that the record accurately reflects my personal performance of the history, physical exam, medical decision making, and the department course for this patient. I have also personally directed, reviewed, and agree with the discharge instructions and disposition. (Talia Oconnor) Physician Patient Turnover Patient Signed Over To: Shade Holden Handoff Comments: FU REEVAL, DISPO <Talia Oconnor - Last Filed: 04/06/18 18:47>
[2018-04-06 20:52] LABS: BASO # 0.1 K/uL (0.0-0.2); BASO % 1.1 % (0.0-2.0); EOS # 0.1 K/uL (0.0-0.7); EOS % 1.1 % (0.0-4.0); HEMOGLOBIN 9.7 g/dL (12.0-18.0); LYMPH # 0.5 K/uL (1.0-4.3); LYMPH % 10.8 % (20.0-40.0); MEAN CELL VOLUME 84.4 fL (80.0-94.0); MEAN CORPUSCULAR HEMOGLOBIN 28.2 pg (27.0-31.0); MEAN CORPUSCULAR HGB CONC 33.4 g/dL (33.0-37.0); MEAN PLATELET VOLUME 7.3 fL (7.2-11.7); MONO # 0.4 K/uL (0.0-0.8); MONO % 9.2 % (0.0-10.0); NEUT # 3.8 K/uL (1.8-7.0); NEUT % 77.8 % (50.0-75.0); NRBC % 0.1 % (0.0-2.0); RBC 3.44 Mil/uL (4.40-5.90); RED CELL DISTRIBUTION WIDTH 19.1 % (11.5-14.5); WHITE BLOOD COUNT 4.9 K/uL (4.8-10.8)
[2018-04-06 21:03] LABS: BLOOD UREA NITROGEN 12 mg/dL (9-20); GFR AFRICAN-AMERICAN > 60; GFR NON-AFRICAN AMERICAN > 60
[2018-04-06 21:04] LABS: ALB/GLOB RATIO 0.6 (1.0-2.1); ALBUMIN 2.8 g/dL (3.5-5.0); ALT/SGPT 58 U/L (21-72); AST/SGOT 108 U/L (17-59); CALCIUM 7.9 mg/dl (8.6-10.4)
--- NOTE | 2018-04-06 23:02 | CT ---
EXAM: CT Head Without Intravenous Contrast CLINICAL HISTORY: 52 years old, male; Pain; Headache and other: Unsteady gait; Patient HX: 03-28-18 TECHNIQUE: Axial computed tomography images of the head/brain without intravenous contrast. All CT scans at this facility use one or more dose reduction techniques, viz.: automated exposure control; ma/kV adjustment per patient size (including targeted exams where dose is matched to indication; i.e. head); or iterative reconstruction technique. COMPARISON: No relevant prior studies available. FINDINGS: Brain: Atrophy. Evidence of central atrophy. Bilateral white matter hypoattenuation, likely representing chronic small vessel ischemic changes. Vascular calcification. No hemorrhage. No edema. Ventricles: No hydrocephalus. Bones: Skull is intact. Sinuses: Moderate maxillary sinus opacification, question mucus retention cysts. Mild ethmoid and sphenoid sinus mucosal thickening. Mastoid air cells: Minimal opacification. IMPRESSION: Atrophy. Evidence of central atrophy. Bilateral white matter hypoattenuation, likely representing chronic small vessel ischemic changes. Vascular calcification. Findings appear advanced for age. Correlate with history. Followup as warranted. Additional details/findings as above.
[2018-04-06 23:08] LABS: URINE BACTERIA RARE (<OCC); URINE BILIRUBIN NEGATIVE (NEGATIVE); URINE CLARITY Clear (Clear); URINE COLOR Yellow (YELLOW); URINE GLUCOSE (UA) NORMAL (Normal); URINE LEUKOCYTE ESTERASE NEG Leu/uL (Negative); URINE PROTEIN NEGATIVE (NEGATIVE)
[2018-04-06 23:09] LABS: URINE BLOOD 1+ (NEGATIVE)
[2018-04-06 23:10] LABS: BARBITURATES, UR NEGATIVE (NEGATIVE); BENZODIAZEPINES, UR POSITIVE (NEGATIVE); OPIATES, UR NEGATIVE (NEGATIVE); PHENCYCLIDINE, UR NEGATIVE (NEGATIVE)
[2018-04-07] MEDS ORDERED: Sodium Chloride 0.9% 1,000 ML IV SCH (01:30)
--- NOTE | 2018-04-07 01:33 | CP.PCM.HP ---
<Morris Manzano - Last Filed: 04/07/18 06:13> History of Present Illness - History of Present Illness History of Present Illness: This is a 52 yo male with questionable history of seizures, drug/alcohol abuse , malingering presenting to ER at [facility]. Patient is unable to give any history. Pt has numerous visits to ER, almost every single day. Pt has history of malingering. EMS was called by patient after pt suffered seizure. Seizure was unwitnessed. Patient has fever in ER, almost 103 by rectum. ROS unobtainable. PMH: anemia, chronic back pain, DVT, alcoholism, liver cirrhosis, esophageal ulcer, hepatic encephalopathy PSH: TIPS procedure Allergies: ASA, NSAIDS FH: breast cancer, colon cancer in family Home meds: keppra bid Social hx: hx of alcoholism. current smoker. denies current drug use. Present on Admission - Present on Admission Any Indicators Present on Admission: Yes History of DVT/PE: Yes History of Uncontrolled Diabetes: No Urinary Catheter: No Decubitus Ulcer Present: No Review of Systems - Review of Systems Systems not reviewed;Unavailable: Altered Mental Status Past Patient History - Infectious Disease Hx of Infectious Diseases: None - Tetanus Immunizations Tetanus Immunization: Unknown - Past Medical History & Family History Past Medical History?: Yes - Past Social History Smoking Status: Light Smoker < 10 Cigarettes Daily - NEUROLOGICAL Hx Seizures: Yes - HEENT Hx HEENT Problems: No - RENAL Hx Chronic Kidney Disease: No - ENDOCRINE/METABOLIC Hx Endocrine Disorders: No - HEMATOLOGICAL/ONCOLOGICAL Hx Anemia: Yes - INTEGUMENTARY Hx Dermatological Problems: Yes - MUSCULOSKELETAL/RHEUMATOLOGICAL Hx Fractures: Yes (rib fx, left shoulder, Left hand 5th digit, Humerus fracture) - GASTROINTESTINAL Hx Gastritis: Yes - PSYCHIATRIC Hx Substance Use: No (patient denies) - SURGICAL HISTORY Hx Surgeries: Yes Hx Orthopedic Surgery: Yes (left shoulder) - ANESTHESIA Hx Anesthesia: Yes Hx Anesthesia Reactions: No Hx Malignant Hyperthermia: No Meds Allergies/Adverse Reactions: Allergies Allergy/AdvReac Type Severity Reaction Status Date / Time aspirin Allergy NAUSEA Verified 04/06/18 12:16 ibuprofen [From Motrin] Allergy NAUSEA Verified 04/06/18 12:16 naproxen Allergy RASH Verified 04/06/18 12:16 NSAIDS (Non-Steroidal Allergy NAUSEA Verified 04/06/18 12:16 Anti-Inflamma Physical Exam - Constitutional Appears: Unkempt, Other - Head Exam Head Exam: ATRAUMATIC, NORMAL INSPECTION, NORMOCEPHALIC - Eye Exam Eye Exam: EOMI - ENT Exam ENT Exam: Mucous Membranes Dry - Neck Exam Neck exam: Positive for: Full Rom, Normal Inspection - Respiratory Exam Respiratory Exam: Clear to Auscultation Bilateral. absent: Respiratory Distress - Cardiovascular Exam Cardiovascular Exam: +S1, +S2 - GI/Abdominal Exam GI & Abdominal Exam: Normal Bowel Sounds, Soft. absent: Tenderness - Extremities Exam Extremities exam: Positive for: full ROM, normal inspection - Back Exam Back exam: NORMAL INSPECTION - Neurological Exam Neurological exam: Altered - Psychiatric Exam Psychiatric exam: Flat Affect - Skin Skin Exam: Dry, Intact, Normal Color, Warm Results - Vital Signs Recent Vital Signs: Last Vital Signs Temp 100.6 F H 04/06/18 22:54 Pulse 88 04/06/18 22:54 Resp 18 04/06/18 22:54 BP 130/65 04/06/18 22:54 Pulse Ox 96 04/06/18 22:54 - Labs Result Diagrams: 04/06/18 20:46 04/06/18 20:46 Labs: Laboratory Results - last 24 hr 04/06/18 04/06/18 04/06/18 20:46 20:46 22:00 WBC 4.9 RBC 3.44 L Hgb 9.7 L Hct 29.1 L MCV 84.4 D MCH 28.2 MCHC 33.4 RDW 19.1 H Plt Count 84 L D MPV 7.3 Neut % (Auto) 77.8 H Lymph % (Auto) 10.8 L [place] % (Auto) 9.2 Eos % (Auto) 1.1 Baso % (Auto) 1.1 Neut # (Auto) 3.8 Lymph # (Auto) 0.5 L [place] # (Auto) 0.4 Eos # (Auto) 0.1 Baso # (Auto) 0.1 Sodium 134 Potassium 3.9 Chloride 103 Carbon Dioxide 23 Anion Gap 12 BUN 12 Creatinine 0.6 L Est GFR ( Amer) > 60 Est GFR (Non-Af Amer) > 60 Random Glucose 102 Calcium 7.9 L Total Bilirubin 3.8 H AST 108 H D ALT 58 Alkaline Phosphatase 160 H D Total Protein 7.3 Albumin 2.8 L Globulin 4.5 H Albumin/Globulin Ratio 0.6 L Urine Color Yellow Urine Clarity Clear Urine pH 8.0 Ur Specific [place] 1.017 Urine Protein Negative Urine Glucose (UA) Normal Urine Ketones Negative Urine Blood 1+ H Urine Nitrate Negative Urine Bilirubin Negative Urine Urobilinogen 4.0 Ur Leukocyte Esterase Neg Urine WBC (Auto) 1 Urine RBC (Auto) 9 H Urine Bacteria Rare Urine Opiates Screen Urine Methadone Screen Ur Barbiturates Screen Ur Phencyclidine Scrn Ur Amphetamines Screen U Benzodiazepines Scrn U Oth Cocaine Metabols U Cannabinoids Screen Alcohol, Quantitative < 10 04/06/18 22:00 WBC RBC Hgb Hct MCV MCH MCHC RDW Plt Count MPV Neut % (Auto) Lymph % (Auto) [place] % (Auto) Eos % (Auto) Baso % (Auto) Neut # (Auto) Lymph # (Auto) Grundy # (Auto) Eos # (Auto) Baso # (Auto) Sodium Potassium Chloride Carbon Dioxide Anion Gap BUN Creatinine Est GFR ( Amer) Est GFR (Non-Af Amer) Random Glucose Calcium Total Bilirubin AST ALT Alkaline Phosphatase Total Protein Albumin Globulin Albumin/Globulin Ratio Urine Color Urine Clarity Urine pH Ur Specific [place] Urine Protein Urine Glucose (UA) Urine Ketones Urine Blood Urine Nitrate Urine Bilirubin Urine Urobilinogen Ur Leukocyte Esterase Urine WBC (Auto) Urine RBC (Auto) Urine Bacteria Urine Opiates Screen Negative Urine Methadone Screen Negative Ur Barbiturates Screen Negative Ur Phencyclidine Scrn Negative Ur Amphetamines Screen Negative U Benzodiazepines Scrn Positive U Oth Cocaine Metabols Negative U Cannabinoids Screen Negative Alcohol, Quantitative Assessment & Plan - Assessment and Plan (Free Text) Assessment: This is a 52 yo male with 1. Fever -unknown origin at this time -place on telemetry -tylenol per rectum -blood cultures -urine cultures -sputum cultures -MRSA screen -VRE screen -CXR -will start IV vanco -will start IV zosyn -ammonia level -may need LP -check PT/INR -VBG shock panel pending >>> lactate within normal limits 2. Hx of cirrhosis -low platelets -check PT/INR>> INR 2.1 -plan to transfuse 2 units of fresh frozen plasma -type and screen 3. GI/DVT ppx -SCDs -protonix discussed with Dr. Langley. <Zack Langley P - Last Filed: 04/07/18 07:21> Results - Vital Signs Recent Vital Signs: Last Vital Signs Temp 99.9 F H 04/07/18 03:04 Pulse 85 04/07/18 03:04 Resp 20 04/07/18 03:04 BP 119/49 L 04/07/18 03:04 Pulse Ox 98 04/07/18 03:04 - Labs Result Diagrams: 04/06/18 20:46 04/06/18 20:46 Labs: Laboratory Results - last 24 hr 04/06/18 04/06/18 04/06/18 20:46 20:46 22:00 WBC 4.9 RBC 3.44 L Hgb 9.7 L Hct 29.1 L MCV 84.4 D MCH 28.2 MCHC 33.4 RDW 19.1 H Plt Count 84 L D MPV 7.3 Neut % (Auto) 77.8 H Lymph % (Auto) 10.8 L [place] % (Auto) 9.2 Eos % (Auto) 1.1 Baso % (Auto) 1.1 Neut # (Auto) 3.8 Lymph # (Auto) 0.5 L [place] # (Auto) 0.4 Eos # (Auto) 0.1 Baso # (Auto) 0.1 PT INR APTT pO2 VBG pH VBG pCO2 VBG HCO3 VBG Total CO2 VBG O2 Sat (Calc) VBG Base Excess VBG Potassium Glucose Lactate Sodium 134 Potassium 3.9 Chloride 103 Carbon Dioxide 23 Anion Gap 12 BUN 12 Creatinine 0.6 L Est GFR ( Amer) > 60 Est GFR (Non-Af Amer) > 60 Random Glucose 102 Calcium 7.9 L Total Bilirubin 3.8 H AST 108 H D ALT 58 Alkaline Phosphatase 160 H D Ammonia Total Protein 7.3 Albumin 2.8 L Globulin 4.5 H Albumin/Globulin Ratio 0.6 L Venous Blood Potassium Urine Color Yellow Urine Clarity Clear Urine pH 8.0 Ur Specific [place] 1.017 Urine Protein Negative Urine Glucose (UA) Normal Urine Ketones Negative Urine Blood 1+ H Urine Nitrate Negative Urine Bilirubin Negative Urine Urobilinogen 4.0 Ur Leukocyte Esterase Neg Urine WBC (Auto) 1 Urine RBC (Auto) 9 H Urine Bacteria Rare Urine Opiates Screen Urine Methadone Screen Ur Barbiturates Screen Ur Phencyclidine Scrn Ur Amphetamines Screen U Benzodiazepines Scrn U Oth Cocaine Metabols U Cannabinoids Screen Alcohol, Quantitative < 10 04/06/18 04/07/18 04/07/18 22:00 01:48 01:48 WBC RBC Hgb Hct MCV MCH MCHC RDW Plt Count MPV Neut % (Auto) Lymph % (Auto) [place] % (Auto) Eos % (Auto) Baso % (Auto) Neut # (Auto) Lymph # (Auto) [place] # (Auto) Eos # (Auto) Baso # (Auto) PT 23.1 H INR 2.1 APTT 39 H pO2 VBG pH VBG pCO2 VBG HCO3 VBG Total CO2 VBG O2 Sat (Calc) VBG Base Excess VBG Potassium Glucose Lactate Sodium Potassium Chloride Carbon Dioxide Anion Gap BUN Creatinine Est GFR ( Amer) Est GFR (Non-Af Amer) Random Glucose Calcium Total Bilirubin AST ALT Alkaline Phosphatase Ammonia 64 H Total Protein Albumin Globulin Albumin/Globulin Ratio Venous Blood Potassium Urine Color Urine Clarity Urine pH Ur Specific [place] Urine Protein Urine Glucose (UA) Urine Ketones Urine Blood Urine Nitrate Urine Bilirubin Urine Urobilinogen Ur Leukocyte Esterase Urine WBC (Auto) Urine RBC (Auto) Urine Bacteria Urine Opiates Screen Negative Urine Methadone Screen Negative Ur Barbiturates Screen Negative Ur Phencyclidine Scrn Negative Ur Amphetamines Screen Negative U Benzodiazepines Scrn Positive U Oth Cocaine Metabols Negative U Cannabinoids Screen Negative Alcohol, Quantitative 04/07/18 01:50 WBC RBC Hgb Hct MCV MCH MCHC RDW Plt Count MPV Neut % (Auto) Lymph % (Auto) [place] % (Auto) Eos % (Auto) Baso % (Auto) Neut # (Auto) Lymph # (Auto) [place] # (Auto) Eos # (Auto) Baso # (Auto) PT INR APTT pO2 43 VBG pH 7.49 H VBG pCO2 29 L VBG HCO3 24.4 VBG Total CO2 23.0 VBG O2 Sat (Calc) 86.0 H VBG Base Excess -0.2 L VBG Potassium 3.5 L Glucose 96 Lactate 1.0 Sodium 133.0 Potassium Chloride 104.0 Carbon Dioxide Anion Gap BUN Creatinine Est GFR ( Amer) Est GFR (Non-Af Amer) Random Glucose Calcium Total Bilirubin AST ALT Alkaline Phosphatase Ammonia Total Protein Albumin Globulin Albumin/Globulin Ratio Venous Blood Potassium 3.5 L Urine Color Urine Clarity Urine pH Ur Specific [place] Urine Protein Urine Glucose (UA) Urine Ketones Urine Blood Urine Nitrate Urine Bilirubin Urine Urobilinogen Ur Leukocyte Esterase Urine WBC (Auto) Urine RBC (Auto) Urine Bacteria Urine Opiates Screen Urine Methadone Screen Ur Barbiturates Screen Ur Phencyclidine Scrn Ur Amphetamines Screen U Benzodiazepines Scrn U Oth Cocaine Metabols U Cannabinoids Screen Alcohol, Quantitative Attending/Attestation - Attestation I have personally seen and examined this patient.: Yes I have fully participated in the care of the patient.: Yes I have reviewed all pertinent clinical information: Yes Notes (Text): Assessment Fever temp spike, without clear source, patient has h/o alcohol related seizures , home less, s/p tips, alcohol cirrhosis, esophagitis, chronic thrombocytopenia , hepatic insufficiency with low albumin, elevated inr. Plan FFP, vit k, possible LP empirically vanco and meropenim Monitor ammonia, risk elevation due to tips Continue keppra See orders for detail.
[2018-04-07 01:57] LABS: VENOUS BLOOD GAS BASE EXCESS -0.2 mmol/L (0.0-2.0); VENOUS BLOOD GAS PCO2 29 mmHg (40-60); VENOUS BLOOD GAS PO2 43 mm/Hg (30-55); VENOUS BLOOD PH 7.49 (7.32-7.43)
[2018-04-07 01:59] LABS: INR 2.1; PROTHROMBIN TIME 23.1 SECONDS (9.7-12.2)
[2018-04-07] MEDS: Vancomycin 1 GM in Sodium Chloride 0.9% 200 ML IVPB SCH (02:20)
[2018-04-07 03:04] VITALS: RESP 20
[2018-04-07] MEDS ORDERED: Meropenem IV 1 gm in NS 50 ML IVPB SCH (06:00)
[2018-04-07 07:18] LABS: BASO # 0.1 K/uL (0.0-0.2); BASO % 1.4 % (0.0-2.0); EOS # 0.1 K/uL (0.0-0.7); EOS % 1.3 % (0.0-4.0); LYMPH # 0.4 K/uL (1.0-4.3); LYMPH % 10.1 % (20.0-40.0); MEAN CELL VOLUME 85.3 fL (80.0-94.0); MEAN PLATELET VOLUME 7.5 fL (7.2-11.7); MONO # 0.4 K/uL (0.0-0.8); MONO % 8.8 % (0.0-10.0); NEUT # 3.3 K/uL (1.8-7.0); NEUT % 78.4 % (50.0-75.0); RBC 3.1 Mil/uL (4.40-5.90); RED CELL DISTRIBUTION WIDTH 19.1 % (11.5-14.5); WHITE BLOOD COUNT 4.2 K/uL (4.8-10.8)
[2018-04-07 07:41] LABS: ALB/GLOB RATIO 0.7 (1.0-2.1); ALT/SGPT 40 U/L (21-72); AST/SGOT 91 U/L (17-59); BLOOD UREA NITROGEN 12 mg/dL (9-20); CALCIUM 7.3 mg/dl (8.6-10.4); GFR AFRICAN-AMERICAN > 60; GFR NON-AFRICAN AMERICAN > 60
[2018-04-07] MEDS ORDERED: levETIRAcetam 500 MG in Sodium Chloride 0.9% 100 ML IVPB SCH (08:00)
--- NOTE | 2018-04-07 08:31 | RAD ---
PROCEDURE: CHEST RADIOGRAPH, 1 VIEW HISTORY: fever COMPARISON: 02/10/2018 FINDINGS: LUNGS: Clear. PLEURA: No pneumothorax or pleural fluid seen. CARDIOVASCULAR: Normal. OSSEOUS STRUCTURES: No significant abnormalities. VISUALIZED UPPER ABDOMEN: Normal. OTHER FINDINGS: None. IMPRESSION: No active disease.
[2018-04-07] MEDS ORDERED: Potassium Chloride 20 mEq ER Tab PO ONE (11:00)
[2018-04-07] MEDS ORDERED: Multivitamin (MVI) 10 ML, Thiamine 100 MG, Folic Acid 1 MG in Sodium Chloride 0.9% 1,00... IV ONE (11:00)
[2018-04-07] MEDS ORDERED: Piperacillin/Tazobact 3.375 GM in Sodium Chloride 100 ML IVPB SCH (13:00)
[2018-04-07] MEDS ORDERED: Piperacill/Tazo 3.375gm in Dex 3.375 GM/50 ML BAG IVPB SCH (13:00)
--- NOTE | 2018-04-07 13:38 | CP.PCM.CON ---
History of Present Illness - History of Present Illness History of Present Illness: 52 yr old male with possible history of epilepsy, etohabuse, who has been here many times for various medical issues. He has a High INR as well as TIPS, so blood cultures and urine cultures, with no nuchal rigidity, or meningismus. He is supposed to be taking keppra twice daily but has not been taking it regularly. Seizure was unwitnessed. Patient has fever in ER, almost 103 by rectum. There is no history of intracranial hemorrhage, stroke or prior admission for status epilepticus. PMH: anemia, chronic back pain, DVT, alcoholism, liver cirrhosis, esophageal ulcer, hepatic encephalopathy PSH: TIPS procedure Allergies: ASA, NSAIDS FH: breast cancer, colon cancer in family Home meds: keppra bid Social hx: hx of alcoholism. current smoker. denies current drug use. On exam: AAOX3. PERRL. CN 2-12 normal. speech fluent, motor 5/5 ul and ll bl. Gait not tested. Ammonia: 65. Past Patient History - Infectious Disease Hx of Infectious Diseases: None - Tetanus Immunizations Tetanus Immunization: Unknown - Past Medical History & Family History Past Medical History?: Yes - Past Social History Smoking Status: Light Smoker < 10 Cigarettes Daily - NEUROLOGICAL Hx Seizures: Yes - HEENT Hx HEENT Problems: No - RENAL Hx Chronic Kidney Disease: No - ENDOCRINE/METABOLIC Hx Endocrine Disorders: No - HEMATOLOGICAL/ONCOLOGICAL Hx Anemia: Yes - INTEGUMENTARY Hx Dermatological Problems: Yes - MUSCULOSKELETAL/RHEUMATOLOGICAL Hx Fractures: Yes (rib fx, left shoulder, Left hand 5th digit, Humerus fracture) - GASTROINTESTINAL Hx Gastritis: Yes - PSYCHIATRIC Hx Substance Use: No (patient denies) - SURGICAL HISTORY Hx Surgeries: Yes Hx Orthopedic Surgery: Yes (left shoulder) - ANESTHESIA Hx Anesthesia: Yes Hx Anesthesia Reactions: No Hx Malignant Hyperthermia: No Meds Allergies/Adverse Reactions: Allergies Allergy/AdvReac Type Severity Reaction Status Date / Time aspirin Allergy NAUSEA Verified 04/06/18 12:16 ibuprofen [From Motrin] Allergy NAUSEA Verified 04/06/18 12:16 naproxen Allergy RASH Verified 04/06/18 12:16 NSAIDS (Non-Steroidal Allergy NAUSEA Verified 04/06/18 12:16 Anti-Inflamma - Medications Medications: Current Medications Acetaminophen (Tylenol 325mg Tab) 650 mg PO Q6 PRN PRN Reason: Fever >100.4 F Folic Acid (Folic Acid) 1 mg PO DAILY [facility] Vancomycin HCl 1 gm/ Sodium (Chloride) 200 mls @ 167 mls/hr IVPB Q24H [facility] PRN Reason: Protocol Last Admin: 04/07/18 02:20 Dose: 167 mls/hr Levetiracetam 500 mg/ Dextrose 105 mls @ 420 mls/hr IVPB Q12H [facility] Multivitamins/Vitamin C 10 ml/Thiamine HCl 100 mg/ Folic Acid 1 mg/ Sodium Chloride 1,011.2 mls @ 100 mls/hr IV .Q10H7M ONE Stop: 04/07/18 21:06 Last Admin: 04/07/18 11:51 Dose: 100 mls/hr Piperacillin Sod/Tazobactam (Sod 3.375 gm/ Sodium Chloride) 100 mls @ 100 mls/ hr IVPB Q6H [facility] PRN Reason: Protocol Lactulose (Enulose) 20 gm PO BID [facility] Last Admin: 04/07/18 11:53 Dose: 20 gm Lorazepam (Ativan) 1 mg IVP Q4H PRN PRN Reason: Symptoms of alcohol withdrawl Multivitamins (Hexavitamin) 1 tab PO DAILY [facility] Pantoprazole Sodium (Protonix Inj) 40 mg IVP DAILY [facility] Last Admin: 04/07/18 09:31 Dose: 40 mg Pneumococcal Polyvalent Vaccine (Pneumovax 23 Vaccine) 0.5 ml IM .ONCE ONE Stop: 04/08/18 12:01 Thiamine HCl (Vitamin B1 Tab) 100 mg PO DAILY [facility] Results - Vital Signs Recent Vital Signs: Last Vital Signs Temp 99.5 F 04/07/18 07:36 Pulse 80 04/07/18 07:36 Resp 20 04/07/18 07:36 BP 103/58 L 04/07/18 07:36 Pulse Ox 98 04/07/18 03:04 - Labs Result Diagrams: 04/07/18 06:59 04/07/18 06:59 Labs: Laboratory Results - last 24 hr 04/06/18 04/06/18 04/06/18 12:17 20:46 20:46 WBC 4.9 RBC 3.44 L Hgb 9.7 L Hct 29.1 L MCV 84.4 D MCH 28.2 MCHC 33.4 RDW 19.1 H Plt Count 84 L D MPV 7.3 Neut % (Auto) 77.8 H Lymph % (Auto) 10.8 L [place] % (Auto) 9.2 Eos % (Auto) 1.1 Baso % (Auto) 1.1 Neut # (Auto) 3.8 Lymph # (Auto) 0.5 L [place] # (Auto) 0.4 Eos # (Auto) 0.1 Baso # (Auto) 0.1 PT INR APTT pO2 VBG pH VBG pCO2 VBG HCO3 VBG Total CO2 VBG O2 Sat (Calc) VBG Base Excess VBG Potassium Glucose Lactate Sodium 134 Potassium 3.9 Chloride 103 Carbon Dioxide 23 Anion Gap 12 BUN 12 Creatinine 0.6 L Est GFR ( Amer) > 60 Est GFR (Non-Af Amer) > 60 POC Glucose (mg/dL) 109 Random Glucose 102 Calcium 7.9 L Total Bilirubin 3.8 H AST 108 H D ALT 58 Alkaline Phosphatase 160 H D Ammonia Total Protein 7.3 Albumin 2.8 L Globulin 4.5 H Albumin/Globulin Ratio 0.6 L Venous Blood Potassium Urine Color Urine Clarity Urine pH Ur Specific [place] Urine Protein Urine Glucose (UA) Urine Ketones Urine Blood Urine Nitrate Urine Bilirubin Urine Urobilinogen Ur Leukocyte Esterase Urine WBC (Auto) Urine RBC (Auto) Urine Bacteria Urine Opiates Screen Urine Methadone Screen Ur Barbiturates Screen Ur Phencyclidine Scrn Ur Amphetamines Screen U Benzodiazepines Scrn U Oth Cocaine Metabols U Cannabinoids Screen Alcohol, Quantitative < 10 Blood Type Antibody Screen 04/06/18 04/06/18 04/06/18 21:07 22:00 22:00 WBC RBC Hgb Hct MCV MCH MCHC RDW Plt Count MPV Neut % (Auto) Lymph % (Auto) [place] % (Auto) Eos % (Auto) Baso % (Auto) Neut # (Auto) Lymph # (Auto) [place] # (Auto) Eos # (Auto) Baso # (Auto) PT INR APTT pO2 VBG pH VBG pCO2 VBG HCO3 VBG Total CO2 VBG O2 Sat (Calc) VBG Base Excess VBG Potassium Glucose Lactate Sodium Potassium Chloride Carbon Dioxide Anion Gap BUN Creatinine Est GFR ( Amer) Est GFR (Non-Af Amer) POC Glucose (mg/dL) 109 Random Glucose Calcium Total Bilirubin AST ALT Alkaline Phosphatase Ammonia Total Protein Albumin Globulin Albumin/Globulin Ratio Venous Blood Potassium Urine Color Yellow Urine Clarity Clear Urine pH 8.0 Ur Specific [place] 1.017 Urine Protein Negative Urine Glucose (UA) Normal Urine Ketones Negative Urine Blood 1+ H Urine Nitrate Negative Urine Bilirubin Negative Urine Urobilinogen 4.0 Ur Leukocyte Esterase Neg Urine WBC (Auto) 1 Urine RBC (Auto) 9 H Urine Bacteria Rare Urine Opiates Screen Negative Urine Methadone Screen Negative Ur Barbiturates Screen Negative Ur Phencyclidine Scrn Negative Ur Amphetamines Screen Negative U Benzodiazepines Scrn Positive U Oth Cocaine Metabols Negative U Cannabinoids Screen Negative Alcohol, Quantitative Blood Type Antibody Screen 04/07/18 04/07/18 04/07/18 01:48 01:48 01:50 WBC RBC Hgb Hct MCV MCH MCHC RDW Plt Count MPV Neut % (Auto) Lymph % (Auto) [place] % (Auto) Eos % (Auto) Baso % (Auto) Neut # (Auto) Lymph # (Auto) [place] # (Auto) Eos # (Auto) Baso # (Auto) PT 23.1 H INR 2.1 APTT 39 H pO2 43 VBG pH 7.49 H VBG pCO2 29 L VBG HCO3 24.4 VBG Total CO2 23.0 VBG O2 Sat (Calc) 86.0 H VBG Base Excess -0.2 L VBG Potassium 3.5 L Glucose 96 Lactate 1.0 Sodium 133.0 Potassium Chloride 104.0 Carbon Dioxide Anion Gap BUN Creatinine Est GFR ( Amer) Est GFR (Non-Af Amer) POC Glucose (mg/dL) Random Glucose Calcium Total Bilirubin AST ALT Alkaline Phosphatase Ammonia 64 H Total Protein Albumin Globulin Albumin/Globulin Ratio Venous Blood Potassium 3.5 L Urine Color Urine Clarity Urine pH Ur Specific [place] Urine Protein Urine Glucose (UA) Urine Ketones Urine Blood Urine Nitrate Urine Bilirubin Urine Urobilinogen Ur Leukocyte Esterase Urine WBC (Auto) Urine RBC (Auto) Urine Bacteria Urine Opiates Screen Urine Methadone Screen Ur Barbiturates Screen Ur Phencyclidine Scrn Ur Amphetamines Screen U Benzodiazepines Scrn U Oth Cocaine Metabols U Cannabinoids Screen Alcohol, Quantitative Blood Type Antibody Screen 04/07/18 04/07/18 04/07/18 06:59 06:59 06:59 WBC 4.2 L RBC 3.10 L Hgb 9.0 L Hct 26.4 L MCV 85.3 MCH 29.0 MCHC 34.0 RDW 19.1 H Plt Count 80 L MPV 7.5 Neut % (Auto) 78.4 H Lymph % (Auto) 10.1 L [place] % (Auto) 8.8 Eos % (Auto) 1.3 Baso % (Auto) 1.4 Neut # (Auto) 3.3 Lymph # (Auto) 0.4 L [place] # (Auto) 0.4 Eos # (Auto) 0.1 Baso # (Auto) 0.1 PT INR APTT pO2 VBG pH VBG pCO2 VBG HCO3 VBG Total CO2 VBG O2 Sat (Calc) VBG Base Excess VBG Potassium Glucose Lactate Sodium 138 Potassium 3.5 L Chloride 107 Carbon Dioxide 21 L Anion Gap 13 BUN 12 Creatinine 0.7 L Est GFR ( Amer) > 60 Est GFR (Non-Af Amer) > 60 POC Glucose (mg/dL) Random Glucose 88 Calcium 7.3 L Total Bilirubin 4.1 H AST 91 H ALT 40 Alkaline Phosphatase 133 H Ammonia Total Protein 7.1 Albumin 3.0 L Globulin 4.1 H Albumin/Globulin Ratio 0.7 L Venous Blood Potassium Urine Color Urine Clarity Urine pH Ur Specific [place] Urine Protein Urine Glucose (UA) Urine Ketones Urine Blood Urine Nitrate Urine Bilirubin Urine Urobilinogen Ur Leukocyte Esterase Urine WBC (Auto) Urine RBC (Auto) Urine Bacteria Urine Opiates Screen Urine Methadone Screen Ur Barbiturates Screen Ur Phencyclidine Scrn Ur Amphetamines Screen U Benzodiazepines Scrn U Oth Cocaine Metabols U Cannabinoids Screen Alcohol, Quantitative Blood Type O POSITIVE Antibody Screen Negative - Imaging and Cardiology CT scan - head Status: Image reviewed by me, Report reviewed by me (CT head: no prior strokes. Bifrontal atrophy. ) Assessment & Plan - Assessment and Plan (Free Text) Assessment: 52 yr old male who has alcohol withdrawal seizures, and should not be on keppra at this time. I do not feel he has meningismus or any signs of meningitis. However, he does have an occult infection, and this, in conjunction with irregular keppra dosing would result in a seizure. PLan: 1. Discontinue keppra 2. Seizure precautions. 3. septic workup. 4. EEG Thank you our team will follow DR. Bassett
[2018-04-07] MEDS: Cefepime IV 2 gm in Dextrose 2 GM/100 ML BAG IVPB SCH (18:03)
--- NOTE | 2018-04-07 18:32 | CP.PCM.CON ---
History of Present Illness - History of Present Illness History of Present Illness: dictated Past Patient History - Infectious Disease Hx of Infectious Diseases: None - Tetanus Immunizations Tetanus Immunization: Unknown - Past Medical History & Family History Past Medical History?: Yes - Past Social History Smoking Status: Light Smoker < 10 Cigarettes Daily - NEUROLOGICAL Hx Seizures: Yes - HEENT Hx HEENT Problems: No - RENAL Hx Chronic Kidney Disease: No - ENDOCRINE/METABOLIC Hx Endocrine Disorders: No - HEMATOLOGICAL/ONCOLOGICAL Hx Anemia: Yes - INTEGUMENTARY Hx Dermatological Problems: Yes - MUSCULOSKELETAL/RHEUMATOLOGICAL Hx Fractures: Yes (rib fx, left shoulder, Left hand 5th digit, Humerus fracture) - GASTROINTESTINAL Hx Gastritis: Yes - PSYCHIATRIC Hx Substance Use: No (patient denies) - SURGICAL HISTORY Hx Surgeries: Yes Hx Orthopedic Surgery: Yes (left shoulder) - ANESTHESIA Hx Anesthesia: Yes Hx Anesthesia Reactions: No Hx Malignant Hyperthermia: No Meds Allergies/Adverse Reactions: Allergies Allergy/AdvReac Type Severity Reaction Status Date / Time aspirin Allergy NAUSEA Verified 04/06/18 12:16 ibuprofen [From Motrin] Allergy NAUSEA Verified 04/06/18 12:16 naproxen Allergy RASH Verified 04/06/18 12:16 NSAIDS (Non-Steroidal Allergy NAUSEA Verified 04/06/18 12:16 Anti-Inflamma - Medications Medications: Current Medications Acetaminophen (Tylenol 325mg Tab) 650 mg PO Q6 PRN PRN Reason: Fever >100.4 F Folic Acid (Folic Acid) 1 mg PO DAILY [facility] Vancomycin HCl 1 gm/ Sodium (Chloride) 200 mls @ 167 mls/hr IVPB Q24H [facility] PRN Reason: Protocol Last Admin: 04/07/18 02:20 Dose: 167 mls/hr Multivitamins/Vitamin C 10 ml/Thiamine HCl 100 mg/ Folic Acid 1 mg/ Sodium Chloride 1,011.2 mls @ 100 mls/hr IV .Q10H7M ONE Stop: 04/07/18 21:06 Last Admin: 04/07/18 11:51 Dose: 100 mls/hr Cefepime HCl (Maxipime Iv 2 Gm Premix) 2 gm in 100 mls @ 100 mls/hr IVPB Q12H [facility] PRN Reason: Protocol Stop: 04/12/18 16:01 Last Admin: 04/07/18 18:03 Dose: 100 mls/hr Lactulose (Enulose) 20 gm PO BID [facility] Last Admin: 04/07/18 18:02 Dose: 20 gm Lorazepam (Ativan) 1 mg IVP Q4H PRN PRN Reason: Symptoms of alcohol withdrawl Multivitamins (Hexavitamin) 1 tab PO DAILY [facility] Pantoprazole Sodium (Protonix Inj) 40 mg IVP DAILY [facility] Last Admin: 04/07/18 09:31 Dose: 40 mg Pneumococcal Polyvalent Vaccine (Pneumovax 23 Vaccine) 0.5 ml IM .ONCE ONE Stop: 04/08/18 12:01 Thiamine HCl (Vitamin B1 Tab) 100 mg PO DAILY [facility] Results - Vital Signs Recent Vital Signs: Last Vital Signs Temp 99.1 F 04/07/18 15:00 Pulse 99 H 04/07/18 16:00 Resp 20 04/07/18 15:00 BP 118/65 04/07/18 15:00 Pulse Ox 97 04/07/18 15:00 - Labs Result Diagrams: 04/07/18 06:59 04/07/18 06:59 Labs: Laboratory Results - last 24 hr 04/06/18 04/06/18 04/06/18 12:17 20:46 20:46 WBC 4.9 RBC 3.44 L Hgb 9.7 L Hct 29.1 L MCV 84.4 D MCH 28.2 MCHC 33.4 RDW 19.1 H Plt Count 84 L D MPV 7.3 Neut % (Auto) 77.8 H Lymph % (Auto) 10.8 L [place] % (Auto) 9.2 Eos % (Auto) 1.1 Baso % (Auto) 1.1 Neut # (Auto) 3.8 Lymph # (Auto) 0.5 L [place] # (Auto) 0.4 Eos # (Auto) 0.1 Baso # (Auto) 0.1 PT INR APTT pO2 VBG pH VBG pCO2 VBG HCO3 VBG Total CO2 VBG O2 Sat (Calc) VBG Base Excess VBG Potassium Glucose Lactate Sodium 134 Potassium 3.9 Chloride 103 Carbon Dioxide 23 Anion Gap 12 BUN 12 Creatinine 0.6 L Est GFR ( Amer) > 60 Est GFR (Non-Af Amer) > 60 POC Glucose (mg/dL) 109 Random Glucose 102 Calcium 7.9 L Total Bilirubin 3.8 H AST 108 H D ALT 58 Alkaline Phosphatase 160 H D Ammonia Total Protein 7.3 Albumin 2.8 L Globulin 4.5 H Albumin/Globulin Ratio 0.6 L Venous Blood Potassium Urine Color Urine Clarity Urine pH Ur Specific [place] Urine Protein Urine Glucose (UA) Urine Ketones Urine Blood Urine Nitrate Urine Bilirubin Urine Urobilinogen Ur Leukocyte Esterase Urine WBC (Auto) Urine RBC (Auto) Urine Bacteria Urine Opiates Screen Urine Methadone Screen Ur Barbiturates Screen Ur Phencyclidine Scrn Ur Amphetamines Screen U Benzodiazepines Scrn U Oth Cocaine Metabols U Cannabinoids Screen Alcohol, Quantitative < 10 Blood Type Antibody Screen 04/06/18 04/06/18 04/06/18 21:07 22:00 22:00 WBC RBC Hgb Hct MCV MCH MCHC RDW Plt Count MPV Neut % (Auto) Lymph % (Auto) [place] % (Auto) Eos % (Auto) Baso % (Auto) Neut # (Auto) Lymph # (Auto) [place] # (Auto) Eos # (Auto) Baso # (Auto) PT INR APTT pO2 VBG pH VBG pCO2 VBG HCO3 VBG Total CO2 VBG O2 Sat (Calc) VBG Base Excess VBG Potassium Glucose Lactate Sodium Potassium Chloride Carbon Dioxide Anion Gap BUN Creatinine Est GFR ( Amer) Est GFR (Non-Af Amer) POC Glucose (mg/dL) 109 Random Glucose Calcium Total Bilirubin AST ALT Alkaline Phosphatase Ammonia Total Protein Albumin Globulin Albumin/Globulin Ratio Venous Blood Potassium Urine Color Yellow Urine Clarity Clear Urine pH 8.0 Ur Specific [place] 1.017 Urine Protein Negative Urine Glucose (UA) Normal Urine Ketones Negative Urine Blood 1+ H Urine Nitrate Negative Urine Bilirubin Negative Urine Urobilinogen 4.0 Ur Leukocyte Esterase Neg Urine WBC (Auto) 1 Urine RBC (Auto) 9 H Urine Bacteria Rare Urine Opiates Screen Negative Urine Methadone Screen Negative Ur Barbiturates Screen Negative Ur Phencyclidine Scrn Negative Ur Amphetamines Screen Negative U Benzodiazepines Scrn Positive U Oth Cocaine Metabols Negative U Cannabinoids Screen Negative Alcohol, Quantitative Blood Type Antibody Screen 04/07/18 04/07/18 04/07/18 01:48 01:48 01:50 WBC RBC Hgb Hct MCV MCH MCHC RDW Plt Count MPV Neut % (Auto) Lymph % (Auto) [place] % (Auto) Eos % (Auto) Baso % (Auto) Neut # (Auto) Lymph # (Auto) [place] # (Auto) Eos # (Auto) Baso # (Auto) PT 23.1 H INR 2.1 APTT 39 H pO2 43 VBG pH 7.49 H VBG pCO2 29 L VBG HCO3 24.4 VBG Total CO2 23.0 VBG O2 Sat (Calc) 86.0 H VBG Base Excess -0.2 L VBG Potassium 3.5 L Glucose 96 Lactate 1.0 Sodium 133.0 Potassium Chloride 104.0 Carbon Dioxide Anion Gap BUN Creatinine Est GFR ( Amer) Est GFR (Non-Af Amer) POC Glucose (mg/dL) Random Glucose Calcium Total Bilirubin AST ALT Alkaline Phosphatase Ammonia 64 H Total Protein Albumin Globulin Albumin/Globulin Ratio Venous Blood Potassium 3.5 L Urine Color Urine Clarity Urine pH Ur Specific [place] Urine Protein Urine Glucose (UA) Urine Ketones Urine Blood Urine Nitrate Urine Bilirubin Urine Urobilinogen Ur Leukocyte Esterase Urine WBC (Auto) Urine RBC (Auto) Urine Bacteria Urine Opiates Screen Urine Methadone Screen Ur Barbiturates Screen Ur Phencyclidine Scrn Ur Amphetamines Screen U Benzodiazepines Scrn U Oth Cocaine Metabols U Cannabinoids Screen Alcohol, Quantitative Blood Type Antibody Screen 04/07/18 04/07/18 04/07/18 06:59 06:59 06:59 WBC 4.2 L RBC 3.10 L Hgb 9.0 L Hct 26.4 L MCV 85.3 MCH 29.0 MCHC 34.0 RDW 19.1 H Plt Count 80 L MPV 7.5 Neut % (Auto) 78.4 H Lymph % (Auto) 10.1 L [place] % (Auto) 8.8 Eos % (Auto) 1.3 Baso % (Auto) 1.4 Neut # (Auto) 3.3 Lymph # (Auto) 0.4 L [place] # (Auto) 0.4 Eos # (Auto) 0.1 Baso # (Auto) 0.1 PT INR APTT pO2 VBG pH VBG pCO2 VBG HCO3 VBG Total CO2 VBG O2 Sat (Calc) VBG Base Excess VBG Potassium Glucose Lactate Sodium 138 Potassium 3.5 L Chloride 107 Carbon Dioxide 21 L Anion Gap 13 BUN 12 Creatinine 0.7 L Est GFR ( Amer) > 60 Est GFR (Non-Af Amer) > 60 POC Glucose (mg/dL) Random Glucose 88 Calcium 7.3 L Total Bilirubin 4.1 H AST 91 H ALT 40 Alkaline Phosphatase 133 H Ammonia Total Protein 7.1 Albumin 3.0 L Globulin 4.1 H Albumin/Globulin Ratio 0.7 L Venous Blood Potassium Urine Color Urine Clarity Urine pH Ur Specific [place] Urine Protein Urine Glucose (UA) Urine Ketones Urine Blood Urine Nitrate Urine Bilirubin Urine Urobilinogen Ur Leukocyte Esterase Urine WBC (Auto) Urine RBC (Auto) Urine Bacteria Urine Opiates Screen Urine Methadone Screen Ur Barbiturates Screen Ur Phencyclidine Scrn Ur Amphetamines Screen U Benzodiazepines Scrn U Oth Cocaine Metabols U Cannabinoids Screen Alcohol, Quantitative Blood Type O POSITIVE Antibody Screen Negative
--- NOTE | 2018-04-07 19:06 | CP.PCM.PN ---
<Eliza Mckee - Last Filed: 04/07/18 19:35> Subjective - Date & Time of Evaluation Date of Evaluation: 04/07/18 Time of Evaluation: 09:00 - Subjective Subjective: Medicine Note for Hospitalist Service- Dr. Landrum Patient was seen and examined at bedside. Patient reports he had a seizure yesterday and this occurs 3-4 times a week. He reports being compliant with his Keppra. He reports Denied fever, chills, headaches, chest pain, shortness of breath, abdominal pain, n/v/d/c, or urinary symptoms. Objective - Vital Signs/Intake and Output Vital Signs (last 24 hours): Temp Pulse Resp BP Pulse Ox 99.4 F 99 H 20 118/65 97 04/07/18 18:33 04/07/18 16:00 04/07/18 15:00 04/07/18 15:00 04/07/18 15:00 Intake and Output: 04/07/18 04/08/18 18:59 06:59 Intake Total 600 Balance 600 - Medications Medications: Current Medications Acetaminophen (Tylenol 325mg Tab) 650 mg PO Q6 PRN PRN Reason: Fever >100.4 F Folic Acid (Folic Acid) 1 mg PO DAILY [facility] Vancomycin HCl 1 gm/ Sodium (Chloride) 200 mls @ 167 mls/hr IVPB Q24H [facility] PRN Reason: Protocol Last Admin: 04/07/18 02:20 Dose: 167 mls/hr Multivitamins/Vitamin C 10 ml/Thiamine HCl 100 mg/ Folic Acid 1 mg/ Sodium Chloride 1,011.2 mls @ 100 mls/hr IV .Q10H7M ONE Stop: 04/07/18 21:06 Last Admin: 04/07/18 11:51 Dose: 100 mls/hr Cefepime HCl (Maxipime Iv 2 Gm Premix) 2 gm in 100 mls @ 100 mls/hr IVPB Q12H [facility] PRN Reason: Protocol Stop: 04/12/18 16:01 Last Admin: 04/07/18 18:03 Dose: 100 mls/hr Lactulose (Enulose) 20 gm PO BID [facility] Last Admin: 04/07/18 18:02 Dose: 20 gm Lorazepam (Ativan) 1 mg IVP Q4H PRN PRN Reason: Symptoms of alcohol withdrawl Multivitamins (Hexavitamin) 1 tab PO DAILY [facility] Pantoprazole Sodium (Protonix Inj) 40 mg IVP DAILY [facility] Last Admin: 04/07/18 09:31 Dose: 40 mg Pneumococcal Polyvalent Vaccine (Pneumovax 23 Vaccine) 0.5 ml IM .ONCE ONE Stop: 04/08/18 12:01 Thiamine HCl (Vitamin B1 Tab) 100 mg PO DAILY [facility] - Labs Labs: 04/07/18 06:59 04/07/18 06:59 PT 23.1 SECONDS (9.7-12.2) H 04/07/18 01:48 INR 2.1 04/07/18 01:48 APTT 39 SECONDS (21-34) H 04/07/18 01:48 - Additional Findings Additional findings: - Constitutional Appears: Unkempt, Other - Head Exam Head Exam: ATRAUMATIC, NORMAL INSPECTION, NORMOCEPHALIC - Eye Exam Eye Exam: EOMI - ENT Exam ENT Exam: Mucous Membranes Dry - Neck Exam Neck exam: No nuchal rigidity, or meningismus. Positive for: Full Rom, Normal Inspection, - Respiratory Exam Respiratory Exam: Clear to Auscultation Bilateral. absent: Respiratory Distress - Cardiovascular Exam Cardiovascular Exam: +S1, +S2 - GI/Abdominal Exam GI & Abdominal Exam: Normal Bowel Sounds, Soft. absent: Tenderness - Extremities Exam Extremities exam: Positive for: full ROM, normal inspection - Back Exam Back exam: NORMAL INSPECTION - Neurological Exam Neurological exam: Altered - Psychiatric Exam Psychiatric exam: Flat Affect - Skin Skin Exam: Dry, Intact, Normal Color, Warm Assessment and Plan - Assessment and Plan (Free Text) Assessment: Patient is a 52yo male with PMHx significant for decompensated EtOH cirrhosis s/ p TIPS (2014), severe esophagitis and recently noted esophageal ulcer (February), EtOH withdrawal seizures who presented to the ED s/p seizure. Plan: Fever Source unknown - ID consulted - Dr. Yee - help appreciated - GI consulted - Dr. Burrows - help appreciated - possible SBP? no prior tap. TIPS stent infection? - Tmax 102.2, tachycardiac, leukopenia, with left shift, no bandemia, lactate 1.0 - CXR: NAD - F/U blood, urine, sputum, MRSA, VRE cultures - F/U HIV, Hepatitis panel (negative in 2017) Management: - Tylenol PRN - Cefepime 2grm Q12, Vanco 1gm daily, f/u vanco trough 04/10 Seizure Alcohol related withdrawal seizures - Neurology consulted - Dr. Bassett- help appreciated - Head CT: Atrophy. Evidence of central atrophy. Bilateral white matter hypoattenuation, likely representing chronic small vessel ischemic changes. Vascular calcification. Findings appear advanced for age. - As per Neuro do NOT restart Keppra 500mg PO BID - F/U EEG Hepatic Encephalopathy Hx Decompensated ETOH cirrhosis s/p TIPS (2014) - Seizure, Aspiration precautions - Ammonia 64 on admission - Monitor bowel movements and mentation - Started lactulose 20gm BID - Ativan 1mg IVP Q4H PRN - MV, Thiamine, Folate Anemia of Chronic Disease Thrombocytopenia, Pancytopenia Likely 2/2 ETOH Use, Cirrhosis - Currently at baseline, no active bleeding Hx Severe Esophagitis - EGD - 03/14/2018 - Esophageal ulcer, retained food - Colonoscopy - 11/2017 - Poor prep, internal/external hemorrhoids - EGD - 09/2017 - LA Grade C esophagitis with visible vessel at EGJ s/p clip and injection of epi, portal hypertensive gastropathy Prophylaxis - GI: Protonix - DVT: SCDs, VTE c/i thrombocytopenia DW Dr. Dr. Landrum, Eliza Mckee DO, PGY-1 <Matthew Landrum - Last Filed: 04/09/18 16:49> Objective - Vital Signs/Intake and Output Vital Signs (last 24 hours): Temp Pulse Resp BP Pulse Ox 98.2 F 80 20 119/64 97 04/09/18 07:00 04/09/18 07:42 04/09/18 07:00 04/09/18 07:00 04/09/18 07:00 Intake and Output: 04/09/18 04/09/18 06:59 18:59 Output Total 600 Balance -600 - Labs Labs: 04/09/18 06:10 04/09/18 06:10 PT 23.1 SECONDS (9.7-12.2) H 04/07/18 01:48 INR 2.1 04/07/18 01:48 APTT 39 SECONDS (21-34) H 04/07/18 01:48 Attending/Attestation - Attestation I have personally seen and examined this patient.: Yes I have fully participated in the care of the patient.: Yes I have reviewed all pertinent clinical information, including history, physical exam and plan: Yes Notes (Text): Patient has no complain. No sob,no abdominal pain fever spikes. Source unknown d/w DR Yee. we will continue antibiotics and follow cultures. Unlikely meniningitis D/R Dr Bassett. unlikely meningitis. D/w resident and I agree with the documentation of the assessment and the plan
[2018-04-08] MEDS: Vancomycin 1 GM in Sodium Chloride 0.9% 200 ML IVPB SCH (01:19)
[2018-04-08] MEDS: Cefepime IV 2 gm in Dextrose 2 GM/100 ML BAG IVPB SCH ×2 (04:58→16:26)
--- NOTE | 2018-04-08 06:41 | CON ---
DATE:04/07/2018 INFECTIOUS DISEASE CONSULT REQUESTED BY: Dr. Rob Baer. HISTORY OF PRESENT ILLNESS: This patient is a 52-year-old male. He has history of seizures. He has been coming everyday to the hospital. As I see, he has been to the ER, came in three times there, 04/03/2018, 04/02/2018, 04/01/2018; 03/27/2018, 03/26/2018, 03/25/2018; 04/03/2018, 04/04/2018, 04/05/2018; he has been with what looks like seizure disorder, abdominal pain, and foot pain. So, we are not sure but today when I went to see him, he does have history of epilepsy, EtOH abuse. Has been many times in the ER. Has a high INR. He had a fever. He denied any fevers at home. He said the fever only happened in the ER, and he has had TIPS procedure done. Before, he says he was supposed to take Keppra twice a day, came in with a fever with 103 per rectal. He, however, denies any fevers at home. Denies any urinary symptoms. Denies any abdominal pain. He was just still complaining of generalized weakness, but he had fever and told in the ER. PAST MEDICAL HISTORY: He has liver cirrhosis and has TIPS procedure. ALLERGIES: HE IS ALLERGIC TO ASPIRIN AND NSAIDS. FAMILY HISTORY: Significant for breast cancer, colon cancer in family, and he is supposed to take Keppra. SOCIAL HISTORY: Significant for history of alcoholism, current smoker. Denies any current drugs. He was initially admitted with altered mental status and past medical history of smoking, he says 2-3 cigarettes a day. Has history of seizures, has been on Keppra. Denies any kidney disease. No endocrine problems. No kidney issues. No drugs. He does have some skin rash on the left foot, he said which has been there. History of fractures before, fracture of left shoulder and left hand fifth digit, humerus fracture. History of gastritis. History of substance abuse. He denies it now. He was arousable when I saw him. He denied any neck pains. No headache. PHYSICAL EXAMINATION: VITAL SIGNS: T-max was 99.4, now . Heart rate was 99. He did have 102.2, also 103 in the ER. This afternoon, it was 102.2 again, fever. GENERAL: He has had a seizure yesterday, and this has been occurring a lot. He does have TIPS procedure done which is probably from transjugular and otherwise not involving the brain as such. He is arousable. He is awake, alert. T-max is 99.9, pulse 85, blood pressure 119/49, respirations are 20. HEENT: Head is atraumatic, normocephalic. Pupils are reacting to light. NECK: Supple. JVP is flat. LUNGS: Clear. No crackles or rales present. HEART: S1 and S2 is regular. No murmurs appreciated. ABDOMEN: Soft, nontender. No guarding, no rigidity present. EXTREMITIES: Have no edema, clubbing, or cyanosis. This time, he has fevers, etiology remains unclear. X-ray is negative. UA is negative. The labs show white count is 4.2, hemoglobin 9, hematocrit 26.4, platelet count is only 80. INR is 2.1. Sodium 138, potassium 3.5, chloride is 107, CO2 is 21, BUN is 13, creatinine 0.7. Total bili is 4.1, so he remains jaundiced. ALT is 40, alk phos is 133. UA shows blood 1+. In this case, I would do an abdominal sonogram to rule out ascites. Fever could be related to aspiration pneumonia, but we are not seeing anything on the x-ray at this time. He was also seen by neurologist. We will follow their recommendations. Septic workup has been done. We will continue with vancomycin and Maxipime. At this time, I have discontinued Merrem as I want to exclude it from causing any problem. We will follow septic workup at this time and if he does have TIPS procedure, I worry about any infection of that system. Alina Yee MD [id number]
[2018-04-08 07:33] LABS: BASO % 1.3 % (0.0-2.0); EOS # 0.1 K/uL (0.0-0.7); HEMOGLOBIN 9.1 g/dL (12.0-18.0); LYMPH # 0.7 K/uL (1.0-4.3); LYMPH % 24.4 % (20.0-40.0); MEAN CELL VOLUME 85.1 fL (80.0-94.0); MEAN CORPUSCULAR HEMOGLOBIN 28.9 pg (27.0-31.0); MEAN CORPUSCULAR HGB CONC 33.9 g/dL (33.0-37.0); MEAN PLATELET VOLUME 8.3 fL (7.2-11.7); MONO # 0.5 K/uL (0.0-0.8); MONO % 16.9 % (0.0-10.0); NEUT # 1.5 K/uL (1.8-7.0); NEUT % 53.4 % (50.0-75.0); NRBC % 0.1 % (0.0-2.0); RBC 3.15 Mil/uL (4.40-5.90); RED CELL DISTRIBUTION WIDTH 19.5 % (11.5-14.5); WHITE BLOOD COUNT 2.7 K/uL (4.8-10.8)
[2018-04-08 07:50] LABS: ALB/GLOB RATIO 0.6 (1.0-2.1); ALBUMIN 2.5 g/dL (3.5-5.0); ALT/SGPT 45 U/L (21-72); AST/SGOT 70 U/L (17-59); BLOOD UREA NITROGEN 15 mg/dL (9-20); CALCIUM 7.9 mg/dl (8.6-10.4); GFR AFRICAN-AMERICAN > 60; GFR NON-AFRICAN AMERICAN > 60
[2018-04-08 08:10] LABS: HEPATITIS B SURFACE AG Negative (NEGATIVE)
[2018-04-08 08:16] LABS: HEPATITIS A IGM NEGATIVE (NEGATIVE); HEPATITIS B CORE AB NEGATIVE (NEGATIVE)
[2018-04-08 09:24] LABS: HEPATITIS C ANTIBODY NEGATIVE (NEGATIVE)
[2018-04-08] MEDS: Multiple Vitamins Tab PO SCH (09:38)
[2018-04-08] MEDS: Magnesium Sulfate 1 gm in D5W 1 GM/100 ML BAG IVPB SCH ×2 (11:28→11:29)
--- NOTE | 2018-04-08 11:57 | US ---
PROCEDURE: Limited abdominal ultrasound examination HISTORY: eval for ascites, concern for ??SBP COMPARISON: Not available TECHNIQUE: Transabdominal FINDINGS: No evidence of ascites. IMPRESSION: No ascites appreciated.
[2018-04-08] MEDS ORDERED: Pneumococcal 23-Valent Vaccine IM ONE (12:00)
--- NOTE | 2018-04-08 12:07 | CP.PCM.PN ---
<EddiejonathanEliza - Last Filed: 04/08/18 12:01> Subjective - Date & Time of Evaluation Date of Evaluation: 04/08/18 Time of Evaluation: 07:00 - Subjective Subjective: Medicine Note for Hospitalist Service- Dr. Landrum Patient was seen and examined at bedside. Patient reports he feels better today , had 1 BM yesterday. Denied fever, chills, headaches, chest pain, shortness of breath, abdominal pain, n/v/d/c, or urinary symptoms. Objective - Vital Signs/Intake and Output Vital Signs (last 24 hours): Temp Pulse Resp BP Pulse Ox 99.0 F 83 20 105/48 L 97 04/08/18 07:15 04/08/18 07:15 04/08/18 07:15 04/08/18 07:15 04/08/18 07:15 Intake and Output: 04/08/18 04/08/18 06:59 18:59 Intake Total 800 Output Total 1400 Balance -600 - Medications Medications: Current Medications Acetaminophen (Tylenol 325mg Tab) 650 mg PO Q6 PRN PRN Reason: Fever >100.4 F Folic Acid (Folic Acid) 1 mg PO DAILY [facility] Last Admin: 04/08/18 09:38 Dose: 1 mg Vancomycin HCl 1 gm/ Sodium (Chloride) 200 mls @ 167 mls/hr IVPB Q24H [facility] PRN Reason: Protocol Last Admin: 04/08/18 01:19 Dose: 167 mls/hr Cefepime HCl (Maxipime Iv 2 Gm Premix) 2 gm in 100 mls @ 100 mls/hr IVPB Q12H [facility] PRN Reason: Protocol Stop: 04/12/18 16:01 Last Admin: 04/08/18 04:58 Dose: 100 mls/hr Magnesium Sulfate/Dextrose (Magnesium Sulfate 1 Gm/100 Ml D5w) 1 gm in 100 mls @ 100 mls/hr IVPB Q1H [facility] Stop: 04/08/18 12:59 Last Admin: 04/08/18 11:29 Dose: 100 mls/hr Lactulose (Enulose) 20 gm PO BID [facility] Last Admin: 04/08/18 09:39 Dose: 20 gm Lorazepam (Ativan) 1 mg IVP Q4H PRN PRN Reason: Symptoms of alcohol withdrawl Multivitamins (Hexavitamin) 1 tab PO DAILY [facility] Last Admin: 04/08/18 09:38 Dose: 1 tab Nicotine (Nicoderm Cq) 1 patch TD DAILY [facility] Pantoprazole Sodium (Protonix Inj) 40 mg IVP DAILY [facility] Last Admin: 04/08/18 09:38 Dose: 40 mg Pneumococcal Polyvalent Vaccine (Pneumovax 23 Vaccine) 0.5 ml IM .ONCE ONE Stop: 04/08/18 12:01 Last Admin: 04/08/18 11:53 Dose: 0.5 ml Thiamine HCl (Vitamin B1 Tab) 100 mg PO DAILY [facility] Last Admin: 04/08/18 09:38 Dose: 100 mg - Labs Labs: 04/08/18 07:17 04/08/18 07:17 PT 23.1 SECONDS (9.7-12.2) H 04/07/18 01:48 INR 2.1 04/07/18 01:48 APTT 39 SECONDS (21-34) H 04/07/18 01:48 - Additional Findings Additional findings: - Constitutional Appears: Unkempt, Other - Head Exam Head Exam: ATRAUMATIC, NORMAL INSPECTION, NORMOCEPHALIC - Eye Exam Eye Exam: EOMI - ENT Exam ENT Exam: Mucous Membranes Dry - Neck Exam Neck exam: No nuchal rigidity, or meningismus. Positive for: Full Rom, Normal Inspection, - Respiratory Exam Respiratory Exam: Clear to Auscultation Bilateral. absent: Respiratory Distress - Cardiovascular Exam Cardiovascular Exam: +S1, +S2 - GI/Abdominal Exam GI & Abdominal Exam: Normal Bowel Sounds, Soft. absent: Tenderness - Extremities Exam Extremities exam: Positive for: full ROM, normal inspection - Back Exam Back exam: NORMAL INSPECTION - Neurological Exam Neurological exam: AAO X3 - Psychiatric Exam Psychiatric exam: Flat Affect - Skin Skin Exam: Dry, Intact, Normal Color, Warm Assessment and Plan - Assessment and Plan (Free Text) Assessment: Patient is a 52yo male with PMHx significant for decompensated EtOH cirrhosis s/ p TIPS (2014), severe esophagitis and recently noted esophageal ulcer (February), EtOH withdrawal seizures who presented to the ED s/p seizure. Plan: Fever, Tmax 102.2 04/07 1am Source unknown - ID consulted - Dr. Yee - help appreciated - GI consulted - Dr. Burrows - help appreciated - possible SBP? no prior tap. TIPS stent infection? - Tmax 102.2, tachycardiac, leukopenia, with left shift, no bandemia, lactate 1.0 - CXR: NAD - Blood, urine, sputum, MRSA, VRE cultures - NEGATIVE TO DATE - HIV, Hepatitis panel - negative Management: - Tylenol PRN - Cefepime 2grm Q12, Vanco 1gm daily, f/u vanco trough 04/10 Seizure Alcohol related withdrawal seizures - Neurology consulted - Dr. Bassett- help appreciated - Head CT: Atrophy. Evidence of central atrophy. Bilateral white matter hypoattenuation, likely representing chronic small vessel ischemic changes. Vascular calcification. Findings appear advanced for age. - As per Neuro do NOT restart Keppra 500mg PO BID - F/U EEG Hepatic Encephalopathy Hx Decompensated ETOH cirrhosis s/p TIPS (2014) - Seizure, Aspiration precautions - Ammonia 64 on admission - Monitor bowel movements and mentation - Started lactulose 20gm BID - Ativan 1mg IVP Q4H PRN - MV, Thiamine, Folate Anemia of Chronic Disease Thrombocytopenia, Pancytopenia Likely 2/2 ETOH Use, Cirrhosis - Currently at baseline, no active bleeding Hx Severe Esophagitis - EGD - 03/14/2018 - Esophageal ulcer, retained food - Colonoscopy - 11/2017 - Poor prep, internal/external hemorrhoids - EGD - 09/2017 - LA Grade C esophagitis with visible vessel at EGJ s/p clip and injection of epi, portal hypertensive gastropathy Prophylaxis - GI: Protonix - DVT: SCDs, VTE c/i thrombocytopenia Disposition: Anticipate discharge after EEG results and recommendations from Neuro. Source of fever unknown by all labs and cultures are negative. DW Eliza Witt Dr., DO, PGY-1 <Matthew Landrum - Last Filed: 04/09/18 17:01> Objective - Vital Signs/Intake and Output Vital Signs (last 24 hours): Temp Pulse Resp BP Pulse Ox 98.2 F 80 20 119/64 97 04/09/18 07:00 04/09/18 07:42 04/09/18 07:00 04/09/18 07:00 04/09/18 07:00 Intake and Output: 04/09/18 04/09/18 06:59 18:59 Output Total 600 Balance -600 - Labs Labs: 04/09/18 06:10 04/09/18 06:10 PT 23.1 SECONDS (9.7-12.2) H 04/07/18 01:48 INR 2.1 04/07/18 01:48 APTT 39 SECONDS (21-34) H 04/07/18 01:48 Attending/Attestation - Attestation I have personally seen and examined this patient.: Yes I have fully participated in the care of the patient.: Yes I have reviewed all pertinent clinical information, including history, physical exam and plan: Yes Notes (Text): Seen and examined by me has no complain, No fever today,cultures are negative Lungs clear,abdomen is benign,he is alert and oriented x3 we will continue antibiotics,follow cultures follow EEG d/w resident I agree with the resident's documentation of the assessment and the plan
--- NOTE | 2018-04-08 22:10 | CP.PCM.PN ---
Subjective - Date & Time of Evaluation Date of Evaluation: 04/08/18 Time of Evaluation: 02:15 - Subjective Subjective: dictated Objective - Vital Signs/Intake and Output Vital Signs (last 24 hours): Temp Pulse Resp BP Pulse Ox 98.7 F 81 20 117/63 100 04/08/18 15:00 04/08/18 15:00 04/08/18 15:00 04/08/18 15:00 04/08/18 15:00 Intake and Output: 04/08/18 04/09/18 18:59 06:59 Intake Total 600 Balance 600 - Medications Medications: Current Medications Acetaminophen (Tylenol 325mg Tab) 650 mg PO Q6 PRN PRN Reason: Fever >100.4 F Last Admin: 04/08/18 20:37 Dose: 650 mg Folic Acid (Folic Acid) 1 mg PO DAILY [facility] Last Admin: 04/08/18 09:38 Dose: 1 mg Vancomycin HCl 1 gm/ Sodium (Chloride) 200 mls @ 167 mls/hr IVPB Q24H [facility] PRN Reason: Protocol Last Admin: 04/08/18 01:19 Dose: 167 mls/hr Cefepime HCl (Maxipime Iv 2 Gm Premix) 2 gm in 100 mls @ 100 mls/hr IVPB Q12H [facility] PRN Reason: Protocol Stop: 04/12/18 16:01 Last Admin: 04/08/18 16:26 Dose: 100 mls/hr Lactulose (Enulose) 20 gm PO BID [facility] Last Admin: 04/08/18 17:08 Dose: Not Given Lorazepam (Ativan) 1 mg IVP Q4H PRN PRN Reason: Symptoms of alcohol withdrawl Multivitamins (Hexavitamin) 1 tab PO DAILY [facility] Last Admin: 04/08/18 09:38 Dose: 1 tab Nicotine (Nicoderm Cq) 1 patch TD DAILY [facility] Pantoprazole Sodium (Protonix Inj) 40 mg IVP DAILY [facility] Last Admin: 04/08/18 09:38 Dose: 40 mg Thiamine HCl (Vitamin B1 Tab) 100 mg PO DAILY [facility] Last Admin: 04/08/18 09:38 Dose: 100 mg - Labs Labs: 04/08/18 07:17 04/08/18 07:17 PT 23.1 SECONDS (9.7-12.2) H 04/07/18 01:48 INR 2.1 04/07/18 01:48 APTT 39 SECONDS (21-34) H 04/07/18 01:48
[2018-04-09 01:16] VITALS: O2SAT 97
[2018-04-09] MEDS: Vancomycin 1 GM in Sodium Chloride 0.9% 200 ML IVPB SCH (01:35)
--- NOTE | 2018-04-09 02:48 | PN ---
DATE: 04/08/2018 SUBJECTIVE: The patient was seen today. He was very alert. He was looking better. He said has washed his hair, and he denied any fever. No chills. Mild headache. He did say he was waiting for EEG. He complained of generalized weakness. No nausea. No vomiting. No diarrhea. He denied any fever as outpatient. PHYSICAL EXAMINATION: VITAL SIGNS: T-max was 99, pulse 83, blood pressure 105/48, respirations 20. HEENT: Head was atraumatic, normocephalic. Tongue, he has no bite henry. NECK: Supple. LUNGS: Clear. No crackles or rales present. Did have some decreased breath sounds, he does smoke. HEART: S1, S2 regular. ABDOMEN: Soft, nontender. No guarding, no rigidity present. EXTREMITIES: Have no edema, clubbing or cyanosis. LABORATORY DATA: White count today was 2.7, hemoglobin 9.1, hematocrit 26.8, platelet count is 66. Most likely he has pancytopenia. His chemistry showed BUN is 15, creatinine is 0.6, and ammonia was better, he came in with 68. HIV was negative. Hepatitis was negative. Drug screen was negative. Alcohol was less than 10. ASSESSMENT AND PLAN: He presented with seizures and had fever, hence he is on antibiotics. So far, I do not have a cause. Blood cultures are negative. Urine cultures are negative. Methicillin-resistant Staphylococcus aureus is negative. We also did ultrasound of the abdomen to rule out any ascites present and it reported that there is no ascites. He did have a head CT done also. So at this time, the etiology of fever remains unclear. If the cultures are negative by tomorrow, blood and urine, chest x-ray was done on 04/07/2018, which showed no active disease then probably we will do a procalcitonin level tomorrow and decide about discontinuing labs and repeat the CBC also. We will follow. Alina Yee MD
[2018-04-09] MEDS: Cefepime IV 2 gm in Dextrose 2 GM/100 ML BAG IVPB SCH (04:57)
[2018-04-09 06:25] LABS: BASO % 0.5 % (0.0-2.0); EOS # 0.2 K/uL (0.0-0.7); HEMOGLOBIN 8.5 g/dL (12.0-18.0); LYMPH # 0.6 K/uL (1.0-4.3); LYMPH % 23.6 % (20.0-40.0); MEAN CELL VOLUME 84.9 fL (80.0-94.0); MEAN CORPUSCULAR HEMOGLOBIN 28.7 pg (27.0-31.0); MEAN CORPUSCULAR HGB CONC 33.8 g/dL (33.0-37.0); MEAN PLATELET VOLUME 8.1 fL (7.2-11.7); MONO # 0.3 K/uL (0.0-0.8); MONO % 10.4 % (0.0-10.0); NEUT # 1.6 K/uL (1.8-7.0); NEUT % 59.5 % (50.0-75.0); RBC 2.97 Mil/uL (4.40-5.90); WHITE BLOOD COUNT 2.6 K/uL (4.8-10.8)
[2018-04-09 06:47] LABS: ALB/GLOB RATIO 0.6 (1.0-2.1); ALBUMIN 2.4 g/dL (3.5-5.0); ALT/SGPT 41 U/L (21-72); AST/SGOT 62 U/L (17-59); BLOOD UREA NITROGEN 11 mg/dL (9-20); CALCIUM 7.7 mg/dl (8.6-10.4); GFR AFRICAN-AMERICAN > 60; GFR NON-AFRICAN AMERICAN > 60
[2018-04-09 08:24] VITALS: BP 119/64; PULSE 80; TEMP 98.2
[2018-04-09] MEDS: Magnesium Sulfate 1 gm in D5W 1 GM/100 ML BAG IVPB SCH ×2 (08:52→13:56)
--- NOTE | 2018-04-09 09:03 | CP.PCM.PN ---
Subjective - Date & Time of Evaluation Date of Evaluation: 04/09/18 Time of Evaluation: 09:01 - Subjective Subjective: Mr. Geiger was seen and examined at the bedside. He is alert, oriented. He denies any headache, dizziness, but complains of frequest urination, but denies any burning sensation. He further states of experiencing itchiness last night which he was given medications with relief. He is able to reposition himself in bed, ambulate to and from the bathroom in steady gait. There was no untoward events overnight. Objective - Vital Signs/Intake and Output Vital Signs (last 24 hours): Temp Pulse Resp BP Pulse Ox 98.2 F 80 20 119/64 97 04/09/18 07:00 04/09/18 07:00 04/09/18 07:00 04/09/18 07:00 04/09/18 07:00 Intake and Output: 04/09/18 04/09/18 06:59 18:59 Output Total 600 Balance -600 - Medications Medications: Current Medications Acetaminophen (Tylenol 325mg Tab) 650 mg PO Q6 PRN PRN Reason: Fever >100.4 F Last Admin: 04/08/18 20:37 Dose: 650 mg Folic Acid (Folic Acid) 1 mg PO DAILY [facility] Last Admin: 04/08/18 09:38 Dose: 1 mg Vancomycin HCl 1 gm/ Sodium (Chloride) 200 mls @ 167 mls/hr IVPB Q24H [facility] PRN Reason: Protocol Last Admin: 04/09/18 01:35 Dose: 167 mls/hr Cefepime HCl (Maxipime Iv 2 Gm Premix) 2 gm in 100 mls @ 100 mls/hr IVPB Q12H [facility] PRN Reason: Protocol Stop: 04/12/18 16:01 Last Admin: 04/09/18 04:57 Dose: 100 mls/hr Lactulose (Enulose) 20 gm PO BID [facility] Last Admin: 04/08/18 17:08 Dose: Not Given Lorazepam (Ativan) 1 mg IVP Q4H PRN PRN Reason: Symptoms of alcohol withdrawl Last Admin: 04/09/18 01:36 Dose: 1 mg Multivitamins (Hexavitamin) 1 tab PO DAILY [facility] Last Admin: 04/08/18 09:38 Dose: 1 tab Nicotine (Nicoderm Cq) 1 patch TD DAILY [facility] Pantoprazole Sodium (Protonix Inj) 40 mg IVP DAILY [facility] Last Admin: 04/08/18 09:38 Dose: 40 mg Thiamine HCl (Vitamin B1 Tab) 100 mg PO DAILY [facility] Last Admin: 04/08/18 09:38 Dose: 100 mg - Labs Labs: 04/09/18 06:10 04/09/18 06:10 PT 23.1 SECONDS (9.7-12.2) H 04/07/18 01:48 INR 2.1 04/07/18 01:48 APTT 39 SECONDS (21-34) H 04/07/18 01:48 - Constitutional Appears: No Acute Distress - Head Exam Head Exam: NORMAL INSPECTION - Eye Exam Pupil Exam: PERRL - Neurological Exam Neurological Exam: Alert, Awake, Oriented x3 Neuro motor strength exam: Left Upper Extremity: 5, Right Upper Extremity: 5, Left Lower Extremity: 5, Right Lower Extremity: 5 Additional comments: There is no focal neuro deficits, ambulates within his room in stable gait, sensation is intact. Assessment and Plan (1) Alcohol withdrawal seizure Assessment & Plan: Case discussed with Dr. Carranza, continue all current medical regimen. Recommend to treat any electrolyte abnormalities. Pending EEG. Status: Acute
[2018-04-09] MEDS: Multiple Vitamins Tab PO SCH (09:15)
--- NOTE | 2018-04-09 13:11 | CP.PCM.PN ---
<EddiejonathanEliza - Last Filed: 04/09/18 15:16> Subjective - Date & Time of Evaluation Date of Evaluation: 04/09/18 Time of Evaluation: 07:00 - Subjective Subjective: Medicine Note for Hospitalist Service- Dr. Landrum Patient was seen and examined at bedside. Patient reports he feels better today. Denied fever, chills, headaches, chest pain, shortness of breath, abdominal pain, n/v/d/c, or urinary symptoms. Objective - Vital Signs/Intake and Output Vital Signs (last 24 hours): Temp Pulse Resp BP Pulse Ox 98.2 F 80 20 119/64 97 04/09/18 07:00 04/09/18 07:00 04/09/18 07:00 04/09/18 07:00 04/09/18 07:00 Intake and Output: 04/09/18 04/09/18 06:59 18:59 Output Total 600 Balance -600 - Medications Medications: Current Medications Acetaminophen (Tylenol 325mg Tab) 650 mg PO Q6 PRN PRN Reason: Fever >100.4 F Last Admin: 04/09/18 13:02 Dose: 650 mg Folic Acid (Folic Acid) 1 mg PO DAILY [facility] Last Admin: 04/09/18 09:15 Dose: 1 mg Vancomycin HCl 1 gm/ Sodium (Chloride) 200 mls @ 167 mls/hr IVPB Q24H [facility] PRN Reason: Protocol Last Admin: 04/09/18 01:35 Dose: 167 mls/hr Cefepime HCl (Maxipime Iv 2 Gm Premix) 2 gm in 100 mls @ 100 mls/hr IVPB Q12H [facility] PRN Reason: Protocol Stop: 04/12/18 16:01 Last Admin: 04/09/18 04:57 Dose: 100 mls/hr Magnesium Sulfate/Dextrose (Magnesium Sulfate 1 Gm/100 Ml D5w) 1 gm in 100 mls @ 200 mls/hr IVPB Q30M [facility] Stop: 04/09/18 14:29 Lactulose (Enulose) 20 gm PO BID [facility] Last Admin: 04/08/18 17:08 Dose: Not Given Lorazepam (Ativan) 1 mg IVP Q4H PRN PRN Reason: Symptoms of alcohol withdrawl Last Admin: 04/09/18 09:16 Dose: 1 mg Multivitamins (Hexavitamin) 1 tab PO DAILY [facility] Last Admin: 04/09/18 09:15 Dose: 1 tab Nicotine (Nicoderm Cq) 1 patch TD DAILY [facility] Last Admin: 04/09/18 09:16 Dose: 1 patch Pantoprazole Sodium (Protonix Inj) 40 mg IVP DAILY [facility] Last Admin: 04/09/18 09:15 Dose: 40 mg Thiamine HCl (Vitamin B1 Tab) 100 mg PO DAILY [facility] Last Admin: 04/09/18 09:15 Dose: 100 mg - Labs Labs: 04/09/18 06:10 04/09/18 06:10 PT 23.1 SECONDS (9.7-12.2) H 04/07/18 01:48 INR 2.1 04/07/18 01:48 APTT 39 SECONDS (21-34) H 04/07/18 01:48 - Additional Findings Additional findings: - Constitutional Appears: Unkempt, Other - Head Exam Head Exam: ATRAUMATIC, NORMAL INSPECTION, NORMOCEPHALIC - Eye Exam Eye Exam: EOMI - ENT Exam ENT Exam: Mucous Membranes Dry - Neck Exam Neck exam: No nuchal rigidity, or meningismus. Positive for: Full Rom, Normal Inspection, - Respiratory Exam Respiratory Exam: Clear to Auscultation Bilateral. absent: Respiratory Distress - Cardiovascular Exam Cardiovascular Exam: +S1, +S2 - GI/Abdominal Exam GI & Abdominal Exam: Normal Bowel Sounds, Soft. absent: Tenderness - Extremities Exam Extremities exam: Positive for: full ROM, normal inspection - Back Exam Back exam: NORMAL INSPECTION - Neurological Exam Neurological exam: AAO X3 - Psychiatric Exam Psychiatric exam: Flat Affect - Skin Skin Exam: Dry, Intact, Normal Color, Warm Assessment and Plan - Assessment and Plan (Free Text) Assessment: Patient is a 52yo male with PMHx significant for decompensated EtOH cirrhosis s/ p TIPS (2014), severe esophagitis and recently noted esophageal ulcer (February), EtOH withdrawal seizures who presented to the ED s/p seizure and fever of unknown source. Plan: Fever, Tmax 102.2 04/07 1am Source unknown - ID consulted - Dr. Yee - help appreciated - GI consulted - Dr. Burrows - help appreciated - possible SBP? no prior tap. TIPS stent infection? - Tmax 102.2, tachycardiac, leukopenia, with left shift, no bandemia, lactate 1.0 - CXR: NAD - Blood, urine, MRSA, VRE cultures - NEGATIVE TO DATE - HIV, Hepatitis panel - negative - Sputum Culture - growing gram negative Management: - Tylenol PRN - Cefepime 2grm Q12, Vanco 1gm daily, f/u vanco trough 04/10 Seizure Alcohol related withdrawal seizures - Neurology consulted - Dr. Bassett- help appreciated - Head CT: Atrophy. Evidence of central atrophy. Bilateral white matter hypoattenuation, likely representing chronic small vessel ischemic changes. Vascular calcification. Findings appear advanced for age. - As per Neuro do NOT restart Keppra 500mg PO BID - F/U EEG Hepatic Encephalopathy Hx Decompensated ETOH cirrhosis s/p TIPS (2014) - Seizure, Aspiration precautions - Ammonia 64 on admission - Monitor bowel movements and mentation - Started lactulose 20gm BID - Ativan 1mg IVP Q4H PRN - MV, Thiamine, Folate Anemia of Chronic Disease Thrombocytopenia, Pancytopenia Likely 2/2 ETOH Use, Cirrhosis - Currently at baseline, no active bleeding Hx Severe Esophagitis - EGD - 03/14/2018 - Esophageal ulcer, retained food - Colonoscopy - 11/2017 - Poor prep, internal/external hemorrhoids - EGD - 09/2017 - LA Grade C esophagitis with visible vessel at EGJ s/p clip and injection of epi, portal hypertensive gastropathy Prophylaxis - GI: Protonix - DVT: SCDs, VTE c/i thrombocytopenia Disposition: Anticipate discharge after EEG results and recommendations from Neuro. Source of fever unknown by all labs and cultures are negative; pending sputum culture growth. DW Eliza Witt Dr., DO, PGY-1 <Matthew Landrum - Last Filed: 04/09/18 17:03> Objective - Vital Signs/Intake and Output Vital Signs (last 24 hours): Temp Pulse Resp BP Pulse Ox 98.2 F 80 20 119/64 97 04/09/18 07:00 04/09/18 07:42 04/09/18 07:00 04/09/18 07:00 04/09/18 07:00 Intake and Output: 04/09/18 04/09/18 06:59 18:59 Output Total 600 Balance -600 - Labs Labs: 04/09/18 06:10 04/09/18 06:10 PT 23.1 SECONDS (9.7-12.2) H 04/07/18 01:48 INR 2.1 04/07/18 01:48 APTT 39 SECONDS (21-34) H 04/07/18 01:48 Attending/Attestation - Attestation I have personally seen and examined this patient.: Yes I have fully participated in the care of the patient.: Yes I have reviewed all pertinent clinical information, including history, physical exam and plan: Yes Notes (Text): seen and examined. sputum culture gram neg rods follow c/s His EEG negative for seizure patient left AMA d/w resident
[2018-04-09] MEDS ORDERED: Magnesium Sulfate 1 gm in D5W 1 GM/100 ML BAG IVPB SCH (14:00)
--- NOTE | 2018-04-09 16:06 | CP.PCM.DIS ---
<RyleeEliza - Last Filed: 04/09/18 16:55> Provider - Provider Date of Admission: 04/07/18 12:35 Attending physician: Matthew Landrum MD Time Spent in preparation of Discharge (in minutes): 55 Hospital Course - Lab Results Lab Results: Micro Results 04/08/18 20:01 Sputum Gram Stain - Final 04/08/18 20:01 Sputum Sputum Culture - Preliminary Gram Negative Benjie 04/07/18 08:28 Blood Blood Culture - Preliminary NO GROWTH AFTER 48 HOURS 04/07/18 08:28 Blood Blood Culture - Preliminary NO GROWTH AFTER 48 HOURS 04/07/18 16:18 Urine,Clean Catch Urine Culture - Final No Growth (<1,000 CFU/ML) 04/07/18 08:07 Naris MRSA Culture (Admit) - Final MRSA NOT DETECTED Most Recent Lab Values WBC 2.6 K/uL (4.8-10.8) L 04/09/18 06:10 RBC 2.97 Mil/uL (4.40-5.90) L 04/09/18 06:10 Hgb 8.5 g/dL (12.0-18.0) L 04/09/18 06:10 Hct 25.2 % (35.0-51.0) L 04/09/18 06:10 MCV 84.9 fL (80.0-94.0) 04/09/18 06:10 MCH 28.7 pg (27.0-31.0) 04/09/18 06:10 MCHC 33.8 g/dL (33.0-37.0) 04/09/18 06:10 RDW 19.0 % (11.5-14.5) H 04/09/18 06:10 Plt Count 76 K/uL (130-400) L 04/09/18 06:10 MPV 8.1 fL (7.2-11.7) 04/09/18 06:10 Neut % (Auto) 59.5 % (50.0-75.0) 04/09/18 06:10 Lymph % (Auto) 23.6 % (20.0-40.0) 04/09/18 06:10 Edgar % (Auto) 10.4 % (0.0-10.0) H 04/09/18 06:10 Eos % (Auto) 6.0 % (0.0-4.0) H 04/09/18 06:10 Baso % (Auto) 0.5 % (0.0-2.0) 04/09/18 06:10 Neut # (Auto) 1.6 K/uL (1.8-7.0) L 04/09/18 06:10 Lymph # (Auto) 0.6 K/uL (1.0-4.3) L 04/09/18 06:10 Edgar # (Auto) 0.3 K/uL (0.0-0.8) 04/09/18 06:10 Eos # (Auto) 0.2 K/uL (0.0-0.7) 04/09/18 06:10 Baso # (Auto) 0.0 K/uL (0.0-0.2) 04/09/18 06:10 Differential Comment 04/08/18 07:17 PT 23.1 SECONDS (9.7-12.2) H 04/07/18 01:48 INR 2.1 04/07/18 01:48 APTT 39 SECONDS (21-34) H 04/07/18 01:48 pO2 43 mm/Hg (30-55) 04/07/18 01:50 VBG pH 7.49 (7.32-7.43) H 04/07/18 01:50 VBG pCO2 29 mmHg (40-60) L 04/07/18 01:50 VBG HCO3 24.4 mmol/L 04/07/18 01:50 VBG Total CO2 23.0 mmol/L (22-28) 04/07/18 01:50 VBG O2 Sat (Calc) 86.0 % (40-65) H 04/07/18 01:50 VBG Base Excess -0.2 mmol/L (0.0-2.0) L 04/07/18 01:50 VBG Potassium 3.5 mmol/L (3.6-5.2) L 04/07/18 01:50 Sodium 133.0 mmol/l (132-148) 04/07/18 01:50 Chloride 104.0 mmol/L (98-107) 04/07/18 01:50 Glucose 96 mg/dl (75-110) 04/07/18 01:50 Lactate 1.0 mmol/L (0.7-2.1) 04/07/18 01:50 Sodium 136 mmol/L (132-148) 04/09/18 06:10 Potassium 4.2 mmol/L (3.6-5.2) 04/09/18 06:10 Chloride 108 mmol/L (98-107) H 04/09/18 06:10 Carbon Dioxide 22 mmol/L (22-30) 04/09/18 06:10 Anion Gap 11 (10-20) 04/09/18 06:10 BUN 11 mg/dL (9-20) 04/09/18 06:10 Creatinine 0.6 mg/dL (0.8-1.5) L 04/09/18 06:10 Est GFR ( Amer) > 60 04/09/18 06:10 Est GFR (Non-Af Amer) > 60 04/09/18 06:10 POC Glucose (mg/dL) 109 mg/dL (65-110) 04/06/18 21:07 Random Glucose 102 mg/dL (75-110) 04/09/18 06:10 Calcium 7.7 mg/dl (8.6-10.4) L 04/09/18 06:10 Phosphorus 3.9 mg/dL (2.5-4.5) 04/09/18 06:10 Magnesium 1.4 mg/dL (1.6-2.3) L 04/09/18 06:10 Total Bilirubin 2.1 mg/dL (0.2-1.3) H 04/09/18 06:10 AST 62 U/L (17-59) H 04/09/18 06:10 ALT 41 U/L (21-72) 04/09/18 06:10 Alkaline Phosphatase 134 U/L (38-126) H 04/09/18 06:10 Ammonia 28 umol/L (9-33) D 04/08/18 07:17 Total Protein 6.2 g/dL (6.3-8.3) L 04/09/18 06:10 Albumin 2.4 g/dL (3.5-5.0) L 04/09/18 06:10 Globulin 3.9 gm/dL (2.2-3.9) 04/09/18 06:10 Albumin/Globulin Ratio 0.6 (1.0-2.1) L 04/09/18 06:10 Procalcitonin 0.13 NG/ML (0.19-0.49) L 04/09/18 06:10 Venous Blood Potassium 3.5 mmol/L (3.6-5.2) L 04/07/18 01:50 Urine Color Yellow (YELLOW) 04/06/18 22:00 Urine Clarity Clear (Clear) 04/06/18 22:00 Urine pH 8.0 (5.0-8.0) 04/06/18 22:00 Ur Specific [place] 1.017 (1.003-1.030) 04/06/18 22:00 Urine Protein Negative mg/dL (NEGATIVE) 04/06/18 22:00 Urine Glucose (UA) Normal mg/dL (Normal) 04/06/18 22:00 Urine Ketones Negative mg/dL (NEGATIVE) 04/06/18 22:00 Urine Blood 1+ (NEGATIVE) H 04/06/18 22:00 Urine Nitrate Negative (NEGATIVE) 04/06/18 22:00 Urine Bilirubin Negative (NEGATIVE) 04/06/18 22:00 Urine Urobilinogen 4.0 mg/dL (0.2-1.0) 04/06/18 22:00 Ur Leukocyte Esterase Neg Davon/uL (Negative) 04/06/18 22:00 Urine WBC (Auto) 1 /hpf (0-5) 04/06/18 22:00 Urine RBC (Auto) 9 /hpf (0-3) H 04/06/18 22:00 Urine Bacteria Rare (<OCC) 04/06/18 22:00 Urine Opiates Screen Negative (NEGATIVE) 04/06/18 22:00 Urine Methadone Screen Negative (NEGATIVE) 04/06/18 22:00 Ur Barbiturates Screen Negative (NEGATIVE) 04/06/18 22:00 Ur Phencyclidine Scrn Negative (NEGATIVE) 04/06/18 22:00 Ur Amphetamines Screen Negative (NEGATIVE) 04/06/18 22:00 U Benzodiazepines Scrn Positive (NEGATIVE) 04/06/18 22:00 U Oth Cocaine Metabols Negative (NEGATIVE) 04/06/18 22:00 U Cannabinoids Screen Negative (NEGATIVE) 04/06/18 22:00 Alcohol, Quantitative < 10 mg/dl (0-10) 04/06/18 20:46 Hepatitis A IgM Ab Negative (NEGATIVE) 04/08/18 07:17 Hep Bs Antigen Negative (NEGATIVE) 04/08/18 07:17 Hep B Core IgM Ab Negative (NEGATIVE) 04/08/18 07:17 Hepatitis C Antibody Negative (NEGATIVE) 04/08/18 07:17 HIV 1&2 Antibody Screen Negative (NEGATIVE) 04/08/18 07:17 Blood Type O POSITIVE 04/07/18 06:59 Antibody Screen Negative 04/07/18 06:59 - Hospital Course Hospital Course: Upon Admission: This is a 52 yo male with questionable history of seizures, drug/alcohol abuse , malingering presenting to ER at [facility]. Patient is unable to give any history. Pt has numerous visits to ER, almost every single day. Pt has history of malingering. EMS was called by patient after pt suffered seizure. Seizure was unwitnessed. Patient has fever in ER, almost 103 by rectum. ROS unobtainable. Throughout Hospital Course: Patient is a 52yo male with PMHx significant for decompensated EtOH cirrhosis s/ p TIPS (2014), severe esophagitis and recently noted esophageal ulcer (February), EtOH withdrawal seizures who presented to the ED s/p seizure and fever of unknown source, all cultures negative, CXR no acute findings, sputum growing gram negative rods - pending sensitivities. Patient was admitted 04/07 after presenting to the ED s/p seizure and fever of 102.[address] Yee from Infectious Disease was consulted. A chest X-ray was done on 04/07 and found no active disease. During his hospital stay, MRSA and VRE blood and urine cultures were collected were found to be negative to date. HIV and Hepatitis panels were negative. A sputum culture was found to be growing gram negative bacteria. Patient was managed with Tylenol PRN, Cefepime 2gm every 12 hours, and Vancomycin 1gm daily. Dr. Bassett from neurology was consulted regarding the patient's alcohol related withdrawal seizures. A head CT was done on 04/06 and found evidence of central atrophy, bilateral white matter hypoattentuation likely representing chronic small vessel ischemic changes, vascular changes, and findings that appear advanced for his age. Dr. Bassett recommended that the patient not be given Keppra 500 mg. The patient's EEG was found to be negative for seizure activity. The patient was placed under seizure and aspiration precautions due to his history of alcohol cirrhosis, TIPS procedure, and Hepatic Encephalopathy. The patient's ammonia level was 64 on admission. The patient was treated with Lactulose 20 gm twice a day, Ativan 1mg IVP every 4 hours as needed, multivitamin, thiamine, and folate. The patient's anemia, thrombocytopenia, and pancytopenia likely secondary to alcohol use and liver cirrhosis was monitored. The patient did not experience any active bleeding during his hospital stay. The patient declines admission to the hospital and wishes to leave the Emergency Department. This action is against my medical advice. This decision was made with informed refusal. The patient was told that admission to the hospital is necessary. Explanation of the reasons why were discussed. The risks of leaving were explained to the patient and include, but are not limited to, worsening of known or currently unknown conditions, permanent disability and from undiagnosed or untreated conditions. The patient has the capacity to make this informed decision and understands my explanation of the current medical problem and risks of leaving. The patient voluntarily accepts these risks and signed an AMA form documenting our conversation.The patient was given the opportunity to ask questions and reconsider. The patient was encouraged to return to the Emergency Department at any time for further care. Please review EMR for full record; as this was a brief summary. Discharge Exam - Additional Findings Additional findings: - Constitutional Appears: Unkempt, Other - Head Exam Head Exam: ATRAUMATIC, NORMAL INSPECTION, NORMOCEPHALIC - Eye Exam Eye Exam: EOMI - ENT Exam ENT Exam: Mucous Membranes Dry - Neck Exam Neck exam: No nuchal rigidity, or meningismus. Positive for: Full Rom, Normal Inspection, - Respiratory Exam Respiratory Exam: Clear to Auscultation Bilateral. absent: Respiratory Distress - Cardiovascular Exam Cardiovascular Exam: +S1, +S2 - GI/Abdominal Exam GI & Abdominal Exam: Normal Bowel Sounds, Soft. absent: Tenderness - Extremities Exam Extremities exam: Positive for: full ROM, normal inspection - Back Exam Back exam: NORMAL INSPECTION - Neurological Exam Neurological exam: AAO X3 - Psychiatric Exam Psychiatric exam: Flat Affect - Skin Skin Exam: Dry, Intact, Normal Color, Warm Discharge Plan - Follow Up Plan Condition: FAIR Disposition: AGAINST MEDICAL ADVICE <Matthew Landrum - Last Filed: 04/09/18 17:04> Provider - Provider Date of Admission: 04/07/18 12:35 Attending physician: Matthew Landrum MD Hospital Course - Lab Results Lab Results: Micro Results 04/08/18 20:01 Sputum Gram Stain - Final 04/08/18 20:01 Sputum Sputum Culture - Preliminary Gram Negative Benjie 04/07/18 08:28 Blood Blood Culture - Preliminary NO GROWTH AFTER 48 HOURS 04/07/18 08:28 Blood Blood Culture - Preliminary NO GROWTH AFTER 48 HOURS 04/07/18 16:18 Urine,Clean Catch Urine Culture - Final No Growth (<1,000 CFU/ML) 04/07/18 08:07 Naris MRSA Culture (Admit) - Final MRSA NOT DETECTED Most Recent Lab Values WBC 2.6 K/uL (4.8-10.8) L 04/09/18 06:10 RBC 2.97 Mil/uL (4.40-5.90) L 04/09/18 06:10 Hgb 8.5 g/dL (12.0-18.0) L 04/09/18 06:10 Hct 25.2 % (35.0-51.0) L 04/09/18 06:10 MCV 84.9 fL (80.0-94.0) 04/09/18 06:10 MCH 28.7 pg (27.0-31.0) 04/09/18 06:10 MCHC 33.8 g/dL (33.0-37.0) 04/09/18 06:10 RDW 19.0 % (11.5-14.5) H 04/09/18 06:10 Plt Count 76 K/uL (130-400) L 04/09/18 06:10 MPV 8.1 fL (7.2-11.7) 04/09/18 06:10 Neut % (Auto) 59.5 % (50.0-75.0) 04/09/18 06:10 Lymph % (Auto) 23.6 % (20.0-40.0) 04/09/18 06:10 Edgar % (Auto) 10.4 % (0.0-10.0) H 04/09/18 06:10 Eos % (Auto) 6.0 % (0.0-4.0) H 04/09/18 06:10 Baso % (Auto) 0.5 % (0.0-2.0) 04/09/18 06:10 Neut # (Auto) 1.6 K/uL (1.8-7.0) L 04/09/18 06:10 Lymph # (Auto) 0.6 K/uL (1.0-4.3) L 04/09/18 06:10 Edgar # (Auto) 0.3 K/uL (0.0-0.8) 04/09/18 06:10 Eos # (Auto) 0.2 K/uL (0.0-0.7) 04/09/18 06:10 Baso # (Auto) 0.0 K/uL (0.0-0.2) 04/09/18 06:10 Differential Comment 04/08/18 07:17 PT 23.1 SECONDS (9.7-12.2) H 04/07/18 01:48 INR 2.1 04/07/18 01:48 APTT 39 SECONDS (21-34) H 04/07/18 01:48 pO2 43 mm/Hg (30-55) 04/07/18 01:50 VBG pH 7.49 (7.32-7.43) H 04/07/18 01:50 VBG pCO2 29 mmHg (40-60) L 04/07/18 01:50 VBG HCO3 24.4 mmol/L 04/07/18 01:50 VBG Total CO2 23.0 mmol/L (22-28) 04/07/18 01:50 VBG O2 Sat (Calc) 86.0 % (40-65) H 04/07/18 01:50 VBG Base Excess -0.2 mmol/L (0.0-2.0) L 04/07/18 01:50 VBG Potassium 3.5 mmol/L (3.6-5.2) L 04/07/18 01:50 Sodium 133.0 mmol/l (132-148) 04/07/18 01:50 Chloride 104.0 mmol/L (98-107) 04/07/18 01:50 Glucose 96 mg/dl (75-110) 04/07/18 01:50 Lactate 1.0 mmol/L (0.7-2.1) 04/07/18 01:50 Sodium 136 mmol/L (132-148) 04/09/18 06:10 Potassium 4.2 mmol/L (3.6-5.2) 04/09/18 06:10 Chloride 108 mmol/L (98-107) H 04/09/18 06:10 Carbon Dioxide 22 mmol/L (22-30) 04/09/18 06:10 Anion Gap 11 (10-20) 04/09/18 06:10 BUN 11 mg/dL (9-20) 04/09/18 06:10 Creatinine 0.6 mg/dL (0.8-1.5) L 04/09/18 06:10 Est GFR ( Amer) > 60 04/09/18 06:10 Est GFR (Non-Af Amer) > 60 04/09/18 06:10 POC Glucose (mg/dL) 109 mg/dL (65-110) 04/06/18 21:07 Random Glucose 102 mg/dL (75-110) 04/09/18 06:10 Calcium 7.7 mg/dl (8.6-10.4) L 04/09/18 06:10 Phosphorus 3.9 mg/dL (2.5-4.5) 04/09/18 06:10 Magnesium 1.4 mg/dL (1.6-2.3) L 04/09/18 06:10 Total Bilirubin 2.1 mg/dL (0.2-1.3) H 04/09/18 06:10 AST 62 U/L (17-59) H 04/09/18 06:10 ALT 41 U/L (21-72) 04/09/18 06:10 Alkaline Phosphatase 134 U/L (38-126) H 04/09/18 06:10 Ammonia 28 umol/L (9-33) D 04/08/18 07:17 Total Protein 6.2 g/dL (6.3-8.3) L 04/09/18 06:10 Albumin 2.4 g/dL (3.5-5.0) L 04/09/18 06:10 Globulin 3.9 gm/dL (2.2-3.9) 04/09/18 06:10 Albumin/Globulin Ratio 0.6 (1.0-2.1) L 04/09/18 06:10 Procalcitonin 0.13 NG/ML (0.19-0.49) L 04/09/18 06:10 Venous Blood Potassium 3.5 mmol/L (3.6-5.2) L 04/07/18 01:50 Urine Color Yellow (YELLOW) 04/06/18 22:00 Urine Clarity Clear (Clear) 04/06/18 22:00 Urine pH 8.0 (5.0-8.0) 04/06/18 22:00 Ur Specific [place] 1.017 (1.003-1.030) 04/06/18 22:00 Urine Protein Negative mg/dL (NEGATIVE) 04/06/18 22:00 Urine Glucose (UA) Normal mg/dL (Normal) 04/06/18 22:00 Urine Ketones Negative mg/dL (NEGATIVE) 04/06/18 22:00 Urine Blood 1+ (NEGATIVE) H 04/06/18 22:00 Urine Nitrate Negative (NEGATIVE) 04/06/18 22:00 Urine Bilirubin Negative (NEGATIVE) 04/06/18 22:00 Urine Urobilinogen 4.0 mg/dL (0.2-1.0) 04/06/18 22:00 Ur Leukocyte Esterase Neg Davon/uL (Negative) 04/06/18 22:00 Urine WBC (Auto) 1 /hpf (0-5) 04/06/18 22:00 Urine RBC (Auto) 9 /hpf (0-3) H 04/06/18 22:00 Urine Bacteria Rare (<OCC) 04/06/18 22:00 Urine Opiates Screen Negative (NEGATIVE) 04/06/18 22:00 Urine Methadone Screen Negative (NEGATIVE) 04/06/18 22:00 Ur Barbiturates Screen Negative (NEGATIVE) 04/06/18 22:00 Ur Phencyclidine Scrn Negative (NEGATIVE) 04/06/18 22:00 Ur Amphetamines Screen Negative (NEGATIVE) 04/06/18 22:00 U Benzodiazepines Scrn Positive (NEGATIVE) 04/06/18 22:00 U Oth Cocaine Metabols Negative (NEGATIVE) 04/06/18 22:00 U Cannabinoids Screen Negative (NEGATIVE) 04/06/18 22:00 Alcohol, Quantitative < 10 mg/dl (0-10) 04/06/18 20:46 Hepatitis A IgM Ab Negative (NEGATIVE) 04/08/18 07:17 Hep Bs Antigen Negative (NEGATIVE) 04/08/18 07:17 Hep B Core IgM Ab Negative (NEGATIVE) 04/08/18 07:17 Hepatitis C Antibody Negative (NEGATIVE) 04/08/18 07:17 HIV 1&2 Antibody Screen Negative (NEGATIVE) 04/08/18 07:17 Blood Type O POSITIVE 04/07/18 06:59 Antibody Screen Negative 04/07/18 06:59 Attending/Attestation - Attestation I have personally seen and examined this patient.: Yes I have fully participated in the care of the patient.: Yes I have reviewed all pertinent clinical information, including history, physical exam and plan: Yes Notes (Text): Left AMA. He is alert and oriented x3 04/09/18 17:03
== END 2018-04-09 15:20 | disposition left against medical advice (07) | DRG 749 ==
LOC: C.ER 12:05 → C.9E 23:49 → C.6T 04-07 01:40 → OBSVTOIN 04-07 12:35
PROVIDERS: ADMIT Internal Medicine; ATTEND Internal Medicine
DX: F10.239 Alcohol dependence with withdrawal, unspecified (principal); K72.90 Hepatic failure, unspecified without coma; D61.818 Other pancytopenia; K70.30 Alcoholic cirrhosis of liver without ascites; Z76.5 Malingerer [conscious simulation]; Y90.0 Blood alcohol level of less than 20 mg/100 ml; G40.89 Other seizures; F17.210 Nicotine dependence, cigarettes, uncomplicated; Z59.0 Homelessness; Z88.6 Allergy status to analgesic agent; D63.8 Anemia in other chronic diseases classified elsewhere; K22.10 Ulcer of esophagus without bleeding; R50.9 Fever, unspecified

== ENCOUNTER 2018-04-10 17:46 | Emergency (ER) | payer MEDICAID ==
[2018-04-10 17:59] VITALS: BMI 24.4
[2018-04-10 18:03] VITALS: BP 108/60; PULSE 100; RESP 18; TEMP 97.6; O2SAT 95
--- NOTE | 2018-04-10 18:04 | C.PDOC ---
History Of Present Illness 52 y/o male brought to the ED by ambulance after patient called EMS stating he had a seizure in a public [place] this evening. When found by EMS patient was standing up, and leaning over a countertop. There were no witnesses in the supermarket to said seizure. Patient was seen at [facility] ED last night and discharged home. Also recently admitted here from 04/07-04/09 with mild elevated pneumonia, treated with Lactulose, and signed out AMA. Patient denies any bit tongue, urinary incontinence, or other injuries. Time Seen by Provider: 04/10/18 17:52 Chief Complaint (Nursing): Medical Clearance History Per: Patient History/Exam Limitations: no limitations Onset/Duration Of Symptoms: Mins Current Symptoms Are (Timing): Gone Reports Recently: Hospitalized Additional History Per: Prior Records Past Medical History Reviewed: Historical Data, Nursing Documentation, Vital Signs Vital Signs: Last Vital Signs Temp 97.6 F 04/10/18 17:50 Pulse 100 H 04/10/18 17:50 Resp 18 04/10/18 17:50 BP 108/60 04/10/18 17:50 Pulse Ox 95 04/10/18 17:50 - Medical History PMH: Anemia, Back Problems (herniated disc), Deep Vein Thrombosis, Fractures ( rib fx, left shoulder, Left hand 5th digit, Humerus fracture), Gastritis, Chronic Pain (left shoulder) Denies: Chronic Kidney Disease Surgical History: Endoscopy - [facility] Procedures ALCOHOL DETOXIFICATION (06/14/15) APPLICATION OF SPLINT (07/16/14) CONTINUOUS INVASIVE MECHANICAL VENTILATION <96 CONSEC HRS (04/13/15) CONTROL BLEEDING IN GASTROINTESTINAL TRACT, ENDO (09/29/17) ENDO EXCISION/DEST OF LESION OR TISSUE OF STOMACH (04/12/15) ESOPHAGOGASTRODUODENOSCOPY [EGD] W/CLOSED BIOPSY (04/19/15) EXCISION OF ESOPHAGOGASTRIC JUNCTION, ENDO, DIAGN (09/29/17) EXCISION OF ESOPHAGUS, ENDO, DIAGN (03/13/18) EXCISION OF STOMACH, ENDO, DIAGN (03/13/18) INFUSION OF VASOPRESSOR AGENT (04/12/15) INSPECTION OF UPPER INTESTINAL TRACT, ENDO (10/15/16) INTRA-ABD VENOUS SHUNT (04/13/15) INTRODUCTION OF OTHER THERAPEUTIC SUBSTANCE INTO UP GI, ENDO (09/29/17) NEBULIZER THERAPY (04/13/15) PACKED CELL TRANSFUSION (04/19/15) PHERESIS OF PLATELETS, SINGLE (09/29/17) PLATELET TRANSFUSION (04/12/15) SERUM TRANSFUSION NEC (04/13/15) THERAPEUTIC PLATELETPHERESIS (04/13/15) TRANSFUSE NONAUT FRESH PLASMA IN PERIPH VEIN, PERC (03/15/17) TRANSFUSE NONAUT FROZEN PLASMA IN PERIPH VEIN, PERC (09/29/17) TRANSFUSE NONAUT FROZEN RED CELLS IN PERIPH VEIN, PERC (02/21/18) TRANSFUSE NONAUT RED BLOOD CELLS IN PERIPH VEIN, PERC (03/30/18) VENOUS CATHETERIZATION NEC (04/12/15) Family History: States: No Known Family Hx - Social History Hx Tobacco Use: Yes Hx Alcohol Use: Yes Hx Substance Use: No (patient denies) - Immunization History Hx Tetanus Toxoid Vaccination: Yes Hx Influenza Vaccination: No Hx Pneumococcal Vaccination: No Review Of Systems Except As Marked, All Systems Reviewed And Found Negative. Constitutional: Negative for: Fever ENT: Negative for: Other (bit tongue) Genitourinary: Negative for: Incontinence Neurological: Positive for: Seizures. Negative for: Confusion, Headache, Dizziness Physical Exam - Physical Exam Appears: No Acute Distress, Other (Alcohol on breath) Skin: Warm, Dry, No Ecchymosis (or evidence of trauma) Head: Atraumatic, Normacephalic Eye(s): bilateral: Normal Inspection, PERRL, EOMI Nose: Normal Oral Mucosa: Moist Neck: Normal ROM Chest: Symmetrical, No Tenderness Cardiovascular: Rhythm Regular, No Murmur Respiratory: Normal Breath Sounds, No Accessory Muscle Use, No Rales, No Rhonchi , No Wheezing Gastrointestinal/Abdominal: Soft, No Tenderness, No Distention Back: Normal Inspection, No CVA Tenderness, No Vertebral Tenderness Extremity: Bilateral: Atraumatic, Normal Color And Temperature, Normal ROM Pulses: Left Dorsalis Pedis: Normal, Right Dorsalis Pedis: Normal Neurological/Psych: Oriented x3, Other (Easily arousable to vigorous sternal rub ) ED Course And Treatment O2 Sat by Pulse Oximetry: 95 (RA) Pulse Ox Interpretation: Normal Medical Decision Making Medical Decision Making: Discharge summary from 04/09/18 reviewed: Patient is a 52yo male with PMHx significant for decompensated EtOH cirrhosis s/ p TIPS (2014), severe esophagitis and recently noted esophageal ulcer (February), EtOH withdrawal seizures who presented to the ED s/p seizure and fever of unknown source, all cultures negative, CXR no acute findings, sputum growing gram negative rods - pending sensitivities. Patient was admitted 04/07 after presenting to the ED s/p seizure and fever of 102.[address] Yee from Infectious Disease was consulted. A chest X-ray was done on 04/07 and found no active disease. During his hospital stay, MRSA and VRE blood and urine cultures were collected were found to be negative to date. HIV and Hepatitis panels were negative. A sputum culture was found to be growing gram negative bacteria. Patient was managed with Tylenol PRN, Cefepime 2gm every 12 hours, and Vancomycin 1gm daily. Dr. Bassett from neurology was consulted regarding the patient's alcohol related withdrawal seizures. A head CT was done on 04/06 and found evidence of central atrophy, bilateral white matter hypoattentuation likely representing chronic small vessel ischemic changes, vascular changes, and findings that appear advanced for his age. Dr. Bassett recommended that the patient not be given Keppra 500 mg. The patient's EEG was found to be negative for seizure activity. The patient was placed under seizure and aspiration precautions due to his history of alcohol cirrhosis, TIPS procedure, and Hepatic Encephalopathy. The patient's ammonia level was 64 on admission. The patient was treated with Lactulose 20 gm twice a day, Ativan 1mg IVP every 4 hours as needed, multivitamin, thiamine, and folate. The patient's anemia, thrombocytopenia, and pancytopenia likely secondary to alcohol use and liver cirrhosis was monitored. The patient did not experience any active bleeding during his hospital stay. The patient declines admission to the hospital and wishes to leave the Emergency Department. This action is against my medical advice. This decision was made with informed refusal. The patient was told that admission to the hospital is necessary. Explanation of the reasons why were discussed. The risks of leaving were explained to the patient and include, but are not limited to, worsening of known or currently unknown conditions, permanent disability and from undiagnosed or untreated conditions. The patient has the capacity to make this informed decision and understands my explanation of the current medical problem and risks of leaving. The patient voluntarily accepts these risks and signed an AMA form documenting our conversation.The patient was given the opportunity to ask questions and reconsider. The patient was encouraged to return to the Emergency Department at any time for further care. Please review EMR for full record; as this was a brief summary. Clinical Impression: Malingering, No seizures (none witnessed in public supermarket) EEG neg for seizures 04/08/18 Pt well known for malingering and bed seeking behavior Extensive labs done and stable in the past 3 days, no repeat w/u indicated at this time. Patient is stable for d/c home. Disposition Doctor Will See Patient In The: Office Counseled Patient/Family Regarding: Studies Performed, Diagnosis - Disposition Referrals: Alcoholics Anonymous [Outside] [facility] [Outside] [facility] [Outside] [facility] [Outside] Disposition: HOME/ ROUTINE Disposition Time: 18:04 Condition: GOOD Additional Instructions: seek assistance for your alcohol abuse issues Seek nightly Detention placement Seek psych services for your underlying psychiatric issues PT IS MEDICALLY CLEARED FOR INCARCERATION Instructions: Alcohol Abuse and Alcoholism (DC) Forms: [employer] (Korean) - POA Present On Arrival: None - Clinical Impression Clinical Impression: Alcohol abuse, Malingering - Scribe Statement The provider has reviewed the documentation as recorded by the Jeanineibdenver Nunez Provider Attestation: All medical record entries made by the Jeanineibdenver were at my direction and personally dictated by me. I have reviewed the chart and agree that the record accurately reflects my personal performance of the history, physical exam, medical decision making, and the department course for this patient. I have also personally directed, reviewed, and agree with the discharge instructions and disposition.
== END 2018-04-10 18:22 | disposition home or self-care (01) ==
LOC: C.ER 17:46
DX: F10.10 Alcohol abuse, uncomplicated (principal); Z76.5 Malingerer [conscious simulation]; Z72.0 Tobacco use

== ENCOUNTER 2018-04-16 09:32 | Emergency (ER) | payer MEDICAID ==
[2018-04-16 09:50] VITALS: RESP 18
--- NOTE | 2018-04-16 10:55 | C.PDOC ---
History Of Present Illness 52 y/o male presents to the ED requesting a suture removal. Patient sustained a wound to the left eyebrow and had 2 sutures placed. Reports he went to [facility] yesterday, and had 1 sutured removed there. They were unable to remove the second, so he came here today. Otherwise patient offers no complaints. Denies any fevers, chills, or redness/pain at wound. Time Seen by Provider: 04/16/18 10:49 Chief Complaint (Nursing): Wound Check History Per: Patient History/Exam Limitations: no limitations Onset/Duration Of Symptoms: Days Ago Past Medical History Reviewed: Historical Data, Nursing Documentation, Vital Signs Vital Signs: Last Vital Signs Temp 98.4 F 04/16/18 11:04 Pulse 90 04/16/18 11:04 Resp 18 04/16/18 11:04 BP 114/61 04/16/18 11:04 Pulse Ox 95 04/16/18 11:04 - Medical History PMH: Anemia, Anxiety, Back Problems (herniated disc), Deep Vein Thrombosis, Fractures (rib fx, left shoulder, Left hand 5th digit, Humerus fracture), Gastritis, Seizures, Chronic Pain (left shoulder) Denies: Chronic Kidney Disease Surgical History: Endoscopy - [facility] Procedures ALCOHOL DETOXIFICATION (06/14/15) APPLICATION OF SPLINT (07/16/14) CONTINUOUS INVASIVE MECHANICAL VENTILATION <96 CONSEC HRS (04/13/15) CONTROL BLEEDING IN GASTROINTESTINAL TRACT, ENDO (09/29/17) ENDO EXCISION/DEST OF LESION OR TISSUE OF STOMACH (04/12/15) ESOPHAGOGASTRODUODENOSCOPY [EGD] W/CLOSED BIOPSY (04/19/15) EXCISION OF ESOPHAGOGASTRIC JUNCTION, ENDO, DIAGN (09/29/17) EXCISION OF ESOPHAGUS, ENDO, DIAGN (03/13/18) EXCISION OF STOMACH, ENDO, DIAGN (03/13/18) INFUSION OF VASOPRESSOR AGENT (04/12/15) INSPECTION OF UPPER INTESTINAL TRACT, ENDO (10/15/16) INTRA-ABD VENOUS SHUNT (04/13/15) INTRODUCTION OF OTHER THERAPEUTIC SUBSTANCE INTO UP GI, ENDO (09/29/17) NEBULIZER THERAPY (04/13/15) PACKED CELL TRANSFUSION (04/19/15) PHERESIS OF PLATELETS, SINGLE (09/29/17) PLATELET TRANSFUSION (04/12/15) SERUM TRANSFUSION NEC (04/13/15) THERAPEUTIC PLATELETPHERESIS (04/13/15) TRANSFUSE NONAUT FRESH PLASMA IN PERIPH VEIN, PERC (03/15/17) TRANSFUSE NONAUT FROZEN PLASMA IN PERIPH VEIN, PERC (09/29/17) TRANSFUSE NONAUT FROZEN RED CELLS IN PERIPH VEIN, PERC (02/21/18) TRANSFUSE NONAUT RED BLOOD CELLS IN PERIPH VEIN, PERC (03/30/18) VENOUS CATHETERIZATION NEC (04/12/15) Family History: States: Unknown Family Hx - Social History Hx Tobacco Use: Yes Hx Alcohol Use: Yes Hx Substance Use: Yes - Immunization History Hx Tetanus Toxoid Vaccination: Yes Hx Influenza Vaccination: No Hx Pneumococcal Vaccination: No Review Of Systems Except As Marked, All Systems Reviewed And Found Negative. Skin: Positive for: Other (suture removal) Physical Exam - Physical Exam Appears: Well, Non-toxic, No Acute Distress Skin: Normal Color, Warm, Dry, Other (Well-healing sutured laceration to left eyebrow, 1 suture intact) Head: Atraumatic, Normacephalic Eye(s): bilateral: Normal Inspection, PERRL, EOMI Oral Mucosa: Moist Neck: Normal ROM Neurological/Psych: Oriented x3, Normal Speech Gait: Steady ED Course And Treatment O2 Sat by Pulse Oximetry: 98 (RA) Pulse Ox Interpretation: Normal Medical Decision Making Medical Decision Making: Clinical Impression: suture removal Suture removed without complication. Patient tolerated procedure well. Stable for d/c home. Disposition Counseled Patient/Family Regarding: Diagnosis, Need For Followup - Disposition Disposition: HOME/ ROUTINE Disposition Time: 10:54 Condition: STABLE Additional Instructions: follow up with your doctor in 2 days call to make an appointment take medications as prescribed return to ER if symptoms worsens or progress Instructions: Stitches Removal Forms: [facility] ([place] Citizen), General Discharge Instructions - POA Present On Arrival: None - Clinical Impression Clinical Impression: Visit for suture removal - Scribe Statement The provider has reviewed the documentation as recorded by the Scribe (Mariah Nunez) Provider Attestation: All medical record entries made by the Scribe were at my direction and personally dictated by me. I have reviewed the chart and agree that the record accurately reflects my personal performance of the history, physical exam, medical decision making, and the department course for this patient. I have also personally directed, reviewed, and agree with the discharge instructions and disposition.
[2018-04-16 11:05] VITALS: BP 114/61; PULSE 90; TEMP 98.4
[2018-04-16 11:24] VITALS: O2SAT 98
== END 2018-04-16 11:05 | disposition home or self-care (01) ==
LOC: C.ER 09:32
DX: Z48.02 Encounter for removal of sutures (principal)

== ENCOUNTER 2018-04-19 21:27 | Emergency (ER) | payer MEDICAID, OTHER ==
[2018-04-19] MEDS ORDERED: levETIRAcetam 500 MG in Sodium Chloride 0.9% 100 ML IVPB STA (21:47)
[2018-04-19] MEDS ORDERED: Sodium Chloride 0.9% 1,000 ML IV ONE (21:47)
[2018-04-19] MEDS ORDERED: Multivitamin (MVI) 10 ML, Thiamine 100 MG, Folic Acid 1 MG in Sodium Chloride 0.9% 1,00... IV ONE (21:48)
[2018-04-19] MEDS ORDERED: Magnesium Sulfate 1 gm in D5W 1 GM/100 ML BAG IVPB ONE ×2 (21:49→21:55)
--- NOTE | 2018-04-19 21:53 | C.PDOC ---
History Of Present Illness 52 year old male is BIBA to the emergency department after suffering a seizure in a local [facility]. Due to patient's somnolent post-ictal state, a history was not able to be obtained. Patient has been seen in local ED close to 30 times in the last month, sometimes twice a day. As per his medical records, he was seen at [facility] last night at 19:26 with seizures for which he is taking Keppra. Patient reports that he has been non-compliant with his medications and often drinks alcohol. Time Seen by Provider: 04/19/18 21:29 Chief Complaint (Nursing): Seizure History Per: Patient, EMS History/Exam Limitations: other (post-ictal somnolence) Recent Seizure Activity Began: Just Before Arrival Precipitating Factor(s): Recent Alcohol Ingestion Past Medical History Reviewed: Historical Data, Nursing Documentation, Vital Signs Vital Signs: Last Vital Signs Temp 98.8 F 04/20/18 15:04 Pulse 85 04/20/18 15:04 Resp 18 04/20/18 15:04 BP 144/90 04/20/18 15:04 Pulse Ox 100 04/20/18 15:04 - Medical History PMH: Anemia, Anxiety, Back Problems (herniated disc), Deep Vein Thrombosis, Fractures (rib fx, left shoulder, Left hand 5th digit, Humerus fracture), Gastritis, Seizures, Chronic Pain (left shoulder) Denies: Chronic Kidney Disease Surgical History: Endoscopy - [facility] Procedures ALCOHOL DETOXIFICATION (06/14/15) APPLICATION OF SPLINT (07/16/14) CONTINUOUS INVASIVE MECHANICAL VENTILATION <96 CONSEC HRS (04/13/15) CONTROL BLEEDING IN GASTROINTESTINAL TRACT, ENDO (09/29/17) ENDO EXCISION/DEST OF LESION OR TISSUE OF STOMACH (04/12/15) ESOPHAGOGASTRODUODENOSCOPY [EGD] W/CLOSED BIOPSY (04/19/15) EXCISION OF ESOPHAGOGASTRIC JUNCTION, ENDO, DIAGN (09/29/17) EXCISION OF ESOPHAGUS, ENDO, DIAGN (03/13/18) EXCISION OF STOMACH, ENDO, DIAGN (03/13/18) INFUSION OF VASOPRESSOR AGENT (04/12/15) INSPECTION OF UPPER INTESTINAL TRACT, ENDO (10/15/16) INTRA-ABD VENOUS SHUNT (04/13/15) INTRODUCTION OF OTHER THERAPEUTIC SUBSTANCE INTO UP GI, ENDO (09/29/17) NEBULIZER THERAPY (04/13/15) PACKED CELL TRANSFUSION (04/19/15) PHERESIS OF PLATELETS, SINGLE (09/29/17) PLATELET TRANSFUSION (04/12/15) SERUM TRANSFUSION NEC (04/13/15) THERAPEUTIC PLATELETPHERESIS (04/13/15) TRANSFUSE NONAUT FRESH PLASMA IN PERIPH VEIN, PERC (03/15/17) TRANSFUSE NONAUT FROZEN PLASMA IN PERIPH VEIN, PERC (09/29/17) TRANSFUSE NONAUT FROZEN RED CELLS IN PERIPH VEIN, PERC (02/21/18) TRANSFUSE NONAUT RED BLOOD CELLS IN PERIPH VEIN, PERC (03/30/18) VENOUS CATHETERIZATION NEC (04/12/15) Family History: States: Unknown Family Hx - Social History Hx Tobacco Use: Yes Hx Alcohol Use: Yes Hx Substance Use: Yes - Immunization History Hx Tetanus Toxoid Vaccination: Yes Hx Influenza Vaccination: No Hx Pneumococcal Vaccination: No Review Of Systems Review Of Systems: ROS cannot be obtained secondary to pt's inabilty to answer questions. Physical Exam - Physical Exam Appears: Non-toxic, Unkempt, Other (answering questions in 1-2 words) Skin: Warm, Dry Head: Atraumatic, Normacephalic Eye(s): bilateral: Normal Inspection, PERRL Oral Mucosa: Dry Neck: Supple Chest: Symmetrical Cardiovascular: Rhythm Regular, No Murmur Respiratory: Normal Breath Sounds, No Rales, No Rhonchi, No Wheezing Gastrointestinal/Abdominal: Soft, No Tenderness, No Guarding, No Rebound Extremity: Normal ROM, No Deformity Extremity: Bilateral: Atraumatic Pulses: Left Dorsalis Pedis: Normal, Right Dorsalis Pedis: Normal Neurological/Psych: Other (exam limited by patient's post-ictal somnolent state. No gross motor or sensory deficits. Patient is unarousable) ED Course And Treatment - Laboratory Results Result Diagrams: 04/19/18 21:57 04/19/18 21:57 O2 Sat by Pulse Oximetry: 95 (RA) Pulse Ox Interpretation: Normal Medical Decision Making Medical Decision Making: Plan: Alcohol Serum CMP Drug Screen CBC Glucose, POC Magnesium Sulfate 1gm in 100ml IVPB NaCl IV Fluids + Multivitamins Impression: Alcohol withdrawal seizure vs. Long-standing seizure disorder with non-compliance to medications. Patient's CT scan from last night's [facility] visit reviewed and negative. Disposition - Disposition Referrals: Alcoholics Anonymous [Outside] Disposition: HOME/ ROUTINE Disposition Time: 23:02 Condition: FAIR Additional Instructions: Thank you for letting us take care of you today. The emergency medical care you received today was directed at your acute symptoms. If you were prescribed any medication, please fill it and take as directed. It may take several days for your symptoms to resolve. Return to the Emergency Department if your symptoms worsen, do not improve, or if you have any other problems. Please contact your doctor or call one of the physicians/clinics you have been referred to that are listed on the Patient Visit Information form that is included in your discharge packet. Bring any paperwork you were given at discharge with you along with any medications you are taking to your follow up visit. Our treatment cannot replace ongoing medical care by a primary care provider (PCP) outside of the emergency department. Thank you for allowing the [facility] team to be part of your care today. Follow up with the clinic for outpatient care. Instructions: Seizures, Adult (DC), Effects of Alcohol on Your Health Forms: [employer] (Citizen Of [place]) Print Language: BELARUSIAN - Clinical Impression Clinical Impression: Tonic-clonic seizure - Scribe Statement The provider has reviewed the documentation as recorded by the Scribe (Mauricio Boothe) Provider Attestation: All medical record entries made by the Scribe were at my direction and personally dictated by me. I have reviewed the chart and agree that the record accurately reflects my personal performance of the history, physical exam, medical decision making, and the department course for this patient. I have also personally directed, reviewed, and agree with the discharge instructions and disposition.
[2018-04-19 22:00] LABS: BASO # 0.1 K/uL (0.0-0.2); EOS # 0.1 K/uL (0.0-0.7); EOS % 1.6 % (0.0-4.0); HEMOGLOBIN 8.8 g/dL (12.0-18.0); LYMPH # 0.5 K/uL (1.0-4.3); LYMPH % 7.7 % (20.0-40.0); MEAN CELL VOLUME 84.6 fL (80.0-94.0); MEAN CORPUSCULAR HEMOGLOBIN 28.2 pg (27.0-31.0); MEAN CORPUSCULAR HGB CONC 33.3 g/dL (33.0-37.0); MEAN PLATELET VOLUME 7.4 fL (7.2-11.7); MONO # 0.3 K/uL (0.0-0.8); MONO % 5.1 % (0.0-10.0); NEUT # 5.6 K/uL (1.8-7.0); NEUT % 84.6 % (50.0-75.0); NRBC % 0.1 % (0.0-2.0); PLATELET COUNT 105 K/uL (130-400); RBC 3.13 Mil/uL (4.40-5.90); RED CELL DISTRIBUTION WIDTH 20.7 % (11.5-14.5); WHITE BLOOD COUNT 6.6 K/uL (4.8-10.8)
[2018-04-19 22:19] LABS: ALB/GLOB RATIO 0.6 (1.0-2.1); ALBUMIN 2.9 g/dL (3.5-5.0); ALT/SGPT 39 U/L (21-72); AST/SGOT 80 U/L (17-59); BLOOD UREA NITROGEN 17 mg/dL (9-20); CALCIUM 7.9 mg/dl (8.6-10.4); GFR AFRICAN-AMERICAN > 60; GFR NON-AFRICAN AMERICAN > 60
[2018-04-19 22:25] LABS: BARBITURATES, UR NEGATIVE (NEGATIVE); BENZODIAZEPINES, UR NEGATIVE (NEGATIVE); OPIATES, UR NEGATIVE (NEGATIVE); PHENCYCLIDINE, UR NEGATIVE (NEGATIVE)
[2018-04-19 22:40] LABS: LYMPHOCYTE 10 % (20-40); MONOCYTE 3 % (0-10); NEUTROPHIL 87 % (50-75); PLATELET ESTIMATE DECREASED (NORMAL); TOTAL CELLS COUNTED 100
[2018-04-19 22:41] LABS: ANISOCYTOSIS SLIGHT; BURR CELLS SLIGHT; HYPOCHROMIC SLIGHT; LARGE PLATELETS PRESENT; MICROCYTOSIS SLIGHT
--- NOTE | 2018-04-20 08:31 | CT ---
PROCEDURE: CT HEAD WITHOUT CONTRAST. HISTORY: seizures COMPARISON: 04/06/2018 TECHNIQUE: Axial computed tomography images were obtained through the head/brain without intravenous contrast. Radiation dose: Total exam DLP = 1203 mGy-cm. This CT exam was performed using one or more of the following dose reduction techniques: Automated exposure control, adjustment of the mA and/or kV according to patient size, and/or use of iterative reconstruction technique. FINDINGS: HEMORRHAGE: No intracranial hemorrhage. BRAIN: No mass effect or edema. Scattered focal lucencies in the subcortical and periventricular white matter suggestive for chronic microvascular ischemic change. . VENTRICLES: Unremarkable. No hydrocephalus. CALVARIUM: Unremarkable. PARANASAL SINUSES: Mucosal thickening of the bilateral maxillary sinuses and ethmoid air cells. MASTOID AIR CELLS: Partial opacification of the bilateral mastoid air cells. OTHER FINDINGS: None. IMPRESSION: Limited study secondary to prominent patient motion artifact. Repeat study may be helpful. Chronic microvascular ischemic change. Sinus mucosal disease. If symptoms persists, consider correlation with MRI.
[2018-04-20 15:05] VITALS: BP 144/90; PULSE 85; RESP 18; TEMP 98.8
[2018-04-20 23:03] VITALS: O2SAT 95
== END 2018-04-20 15:39 | disposition home or self-care (01) ==
LOC: C.ER 21:27
DX: G40.409 Other generalized epilepsy and epileptic syndromes, not intractable, without status epilepticus (principal); Z72.0 Tobacco use
CPT/HCPCS: 70450; 80053; 80320; 80324; 80345; 80346; 80349; 80353; 80358; 80361; 82948; 83992; 85025; 96374; 96375; 99285; J1953; J3411; J3475; J7030

== ENCOUNTER 2018-04-20 17:49 | Emergency (ER) | payer MEDICAID ==
[2018-04-20 17:55] VITALS: BMI 24.4
[2018-04-20 17:58] VITALS: RESP 18; O2SAT 98
[2018-04-20 18:19] LABS: BASO # 0.1 K/uL (0.0-0.2); BASO % 1.5 % (0.0-2.0); EOS # 0.2 K/uL (0.0-0.7); EOS % 3.8 % (0.0-4.0); HEMOGLOBIN 10.8 g/dL (12.0-18.0); LYMPH # 1.2 K/uL (1.0-4.3); LYMPH % 18.7 % (20.0-40.0); MEAN CELL VOLUME 86.8 fL (80.0-94.0); MEAN CORPUSCULAR HEMOGLOBIN 28.4 pg (27.0-31.0); MEAN CORPUSCULAR HGB CONC 32.7 g/dL (33.0-37.0); MEAN PLATELET VOLUME 7.1 fL (7.2-11.7); MONO # 0.6 K/uL (0.0-0.8); MONO % 9.6 % (0.0-10.0); NEUT # 4.3 K/uL (1.8-7.0); NEUT % 66.4 % (50.0-75.0); NRBC % 0.1 % (0.0-2.0); RBC 3.8 Mil/uL (4.40-5.90); RED CELL DISTRIBUTION WIDTH 21.7 % (11.5-14.5); WHITE BLOOD COUNT 6.5 K/uL (4.8-10.8)
[2018-04-20 18:36] LABS: CALCIUM 7.6 mg/dl (8.6-10.4); GFR AFRICAN-AMERICAN > 60; GFR NON-AFRICAN AMERICAN > 60
[2018-04-20 18:45] LABS: ALB/GLOB RATIO 0.6 (1.0-2.1); ALBUMIN 3.3 g/dL (3.5-5.0); ALT/SGPT 21 U/L (21-72); AST/SGOT 115 U/L (17-59); BLOOD UREA NITROGEN 17 mg/dL (9-20)
--- NOTE | 2018-04-20 19:33 | C.PDOC ---
History Of Present Illness 52 y/o male brought in by ambulance less than 2 hours after being discharged earlier today, for complaint of seizure with no witnesses. No evidence of obvious injury or head trauma. Patient states he had another seizure, and that he knows this because he was awake the whole time. Prior work-ups have included EEG negative for seizure disorder. 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 Otherwise he denies any incontinence , bit tongue, or head injury. Time Seen by Provider: 04/20/18 17:54 Chief Complaint (Nursing): Medical Clearance History Per: Patient History/Exam Limitations: no limitations Onset/Duration Of Symptoms: Mins Current Symptoms Are (Timing): Gone Additional History Per: EMS Past Medical History Reviewed: Historical Data, Nursing Documentation, Vital Signs Vital Signs: Last Vital Signs Temp 98.9 F 04/20/18 20:00 Pulse 78 04/20/18 20:00 Resp 18 04/20/18 20:00 BP 135/76 04/20/18 20:00 Pulse Ox 98 04/20/18 20:00 - Medical History PMH: Seizures (? due to alcohol withdrawal) Other Surgeries: Left finger surgery Family History: States: No Known Family Hx - Social History Hx Tobacco Use: Yes Hx Alcohol Use: Yes Hx Substance Use: No - Immunization History Hx Tetanus Toxoid Vaccination: Yes Hx Influenza Vaccination: Yes Hx Pneumococcal Vaccination: Yes Review Of Systems Except As Marked, All Systems Reviewed And Found Negative. Eyes: Negative for: Vision Change Gastrointestinal: Negative for: Nausea, Vomiting Neurological: Positive for: Seizures. Negative for: Weakness, Numbness, Incoordination, Change in Speech, Altered Mental Status, Headache, Dizziness Physical Exam - Physical Exam Appears: Non-toxic, No Acute Distress, Agitated (and argumentative) Skin: Normal Color (with no evidence of trauma), Warm, Dry Head: Atraumatic, Normacephalic Eye(s): bilateral: Normal Inspection (w/ dilated pupils), PERRL, EOMI Nose: Normal Oral Mucosa: Moist Neck: Normal ROM, No Paracervical Tenderness, Supple Chest: Symmetrical Cardiovascular: Rhythm Regular, No Murmur Respiratory: Normal Breath Sounds, No Rales, No Rhonchi, No Wheezing Gastrointestinal/Abdominal: Soft, No Tenderness, No Distention Extremity: Bilateral: Atraumatic, Normal Color And Temperature, Normal ROM Pulses: Left Dorsalis Pedis: Normal, Right Dorsalis Pedis: Normal Neurological/Psych: Oriented x3, Normal Speech, Other (Ambulatory in the ED, moving all extremities equally) Gait: Steady ED Course And Treatment - Laboratory Results Result Diagrams: 04/20/18 18:14 04/20/18 18:14 O2 Sat by Pulse Oximetry: 98 (RA) Pulse Ox Interpretation: Normal Medical Decision Making Medical Decision Making: malingering, ongoing bed-seeking pt d/c'd < 2 hrs ago, went < 2 blocks from hospital insists he had a seizure and remained awake the entire time. Prior w/u in past 2 monts NEG for seizure (normal MRI, nl EEG) ? h/o alcohol withdrawal seizures but NOT epileptic Ammonia 56 is relatively LOW for this pt with TIPS seemingly compliant with lactuose and/or consistently inpatient As pt ambulatory, verbally abusive w staff, stable gait and NOT intoxicated, LOW susp of hepatic encephalopathy causing his transient "seizures" and prompt returns to ED lactulose given to help maintain lower Ammonia level Alcohol zero Disposition Doctor Will See Patient In The: Office Counseled Patient/Family Regarding: Studies Performed, Diagnosis - Disposition Referrals: ED Physician, [Primary Care Provider] - Disposition: HOME/ ROUTINE Disposition Time: 19:38 Condition: GOOD Additional Instructions: continue your lactulose twice a day as previously prescribed avoid alcohol abuse- especially in light of your advanced liver disease and TIPS Seek nightly Care Home placement Instructions: Alcohol Use - When Is Drinking a Problem?, Hepatic Encephalopathy (DC) Forms: [facility] (Colombian) - Clinical Impression Clinical Impression: Malingerer - Scribe Statement The provider has reviewed the documentation as recorded by the Scribe (Mariah Nunez) Provider Attestation: All medical record entries made by the Scribe were at my direction and personally dictated by me. I have reviewed the chart and agree that the record accurately reflects my personal performance of the history, physical exam, medical decision making, and the department course for this patient. I have also personally directed, reviewed, and agree with the discharge instructions and disposition.
[2018-04-20 20:01] VITALS: BP 135/76; PULSE 78; TEMP 98.9
== END 2018-04-20 20:00 | disposition home or self-care (01) ==
LOC: MERGE 17:49 → C.ER 17:49
DX: Z76.5 Malingerer [conscious simulation] (principal); Z72.0 Tobacco use

== ENCOUNTER 2018-06-29 08:00 | Emergency (ER) | payer MEDICAID, OTHER ==
[2018-06-29 08:00] VITALS: BMI 23.7
[2018-06-29 09:47] VITALS: BP 110/70; PULSE 85; RESP 18; TEMP 98.7; O2SAT 98
--- NOTE | 2018-06-29 10:11 | C.PDOC ---
History Of Present Illness 52 y/o male, with PMHx of seizures and alcohol abuse, presents to ED for evaluation of possible seizure. Pt has had numerous visits to ED for similar symptoms. He was seen at [facility] ED 3 times yesterday. He denies drinking any alcohol today. Otherwise, denies bowel/bladder incontinence, chest pain, shortness of breath, or fever. Time Seen by Provider: 06/29/18 08:17 Chief Complaint (Nursing): Seizure History Per: Patient History/Exam Limitations: no limitations Past Medical History Reviewed: Historical Data, Nursing Documentation, Vital Signs Vital Signs: Last Vital Signs Temp 98.7 F 06/29/18 09:45 Pulse 85 06/29/18 09:45 Resp 18 06/29/18 09:45 BP 110/70 06/29/18 09:45 Pulse Ox 98 06/29/18 10:14 - Medical History PMH: Anemia, Anxiety, Back Problems (herniated disc), Deep Vein Thrombosis, Fractures (rib fx, left shoulder, Left hand 5th digit, Humerus fracture), Gastritis, Seizures, Chronic Pain (left shoulder) Denies: CHF, HIV, Hypercholesterolemia, Chronic Kidney Disease, Sexually Transmitted Disease Surgical History: Endoscopy - [facility] Procedures ALCOHOL DETOXIFICATION (06/14/15) APPLICATION OF SPLINT (07/16/14) CONTINUOUS INVASIVE MECHANICAL VENTILATION <96 CONSEC HRS (04/13/15) CONTROL BLEEDING IN GASTROINTESTINAL TRACT, ENDO (09/29/17) ENDO EXCISION/DEST OF LESION OR TISSUE OF STOMACH (04/12/15) ESOPHAGOGASTRODUODENOSCOPY [EGD] W/CLOSED BIOPSY (04/19/15) EXCISION OF ESOPHAGOGASTRIC JUNCTION, ENDO, DIAGN (09/29/17) EXCISION OF ESOPHAGUS, ENDO, DIAGN (03/13/18) EXCISION OF STOMACH, ENDO, DIAGN (03/13/18) INFUSION OF VASOPRESSOR AGENT (04/12/15) INSPECTION OF UPPER INTESTINAL TRACT, ENDO (10/15/16) INTRA-ABD VENOUS SHUNT (04/13/15) INTRODUCTION OF OTHER THERAPEUTIC SUBSTANCE INTO UP GI, ENDO (09/29/17) NEBULIZER THERAPY (04/13/15) PACKED CELL TRANSFUSION (04/19/15) PHERESIS OF PLATELETS, SINGLE (09/29/17) PLATELET TRANSFUSION (04/12/15) SERUM TRANSFUSION NEC (04/13/15) THERAPEUTIC PLATELETPHERESIS (04/13/15) TRANSFUSE NONAUT FRESH PLASMA IN PERIPH VEIN, PERC (03/15/17) TRANSFUSE NONAUT FROZEN PLASMA IN PERIPH VEIN, PERC (09/29/17) TRANSFUSE NONAUT FROZEN RED CELLS IN PERIPH VEIN, PERC (02/21/18) TRANSFUSE NONAUT RED BLOOD CELLS IN PERIPH VEIN, PERC (05/21/18) VENOUS CATHETERIZATION NEC (04/12/15) Family History: States: Unknown Family Hx - Social History Hx Tobacco Use: Yes Hx Alcohol Use: Yes Hx Substance Use: No (denies) - Immunization History Hx Tetanus Toxoid Vaccination: No Hx Influenza Vaccination: Yes Hx Pneumococcal Vaccination: Yes Review Of Systems Except As Marked, All Systems Reviewed And Found Negative. Constitutional: Negative for: Fever, Chills Cardiovascular: Negative for: Chest Pain, Palpitations Respiratory: Negative for: Shortness of Breath Gastrointestinal: Negative for: Nausea, Vomiting Genitourinary: Negative for: Incontinence Neurological: Positive for: Seizures. Negative for: Headache, Dizziness Physical Exam - Physical Exam Appears: Non-toxic, No Acute Distress Skin: Warm, Dry, Ecchymosis (ecchymosis to right shoulder, in stage of healing) Head: Atraumatic, Normacephalic Eye(s): bilateral: Normal Inspection Oral Mucosa: Moist, Other (EtOH on breath) Tongue: Normal Appearing, No Lesions, No Bite Lips: Normal Appearing, No Lesions Throat: Normal Neck: Normal ROM, Supple Cardiovascular: Rhythm Regular Respiratory: Normal Breath Sounds, No Rales, No Rhonchi, No Wheezing Gastrointestinal/Abdominal: Soft, No Tenderness Extremity: Normal ROM, No Tenderness, No Deformity Neurological/Psych: Oriented x3, Normal Speech ED Course And Treatment O2 Sat by Pulse Oximetry: 98 (RA) Pulse Ox Interpretation: Normal Medical Decision Making Medical Decision Making: Pt was given Keppra, and Tylenol. Disposition - Disposition Referrals: Alcoholics Anonymous [Outside] [facility] [Outside] [facility] [Outside] Disposition: HOME/ ROUTINE Disposition Time: 09:00 Condition: GOOD Additional Instructions: ROSA RODRIGUEZ, thank you for letting us take care of you today. The emergency medical care you received today was directed at your acute symptoms. If you were prescribed any medication, please fill it and take as directed. It may take several days for your symptoms to resolve. Return to the Emergency Department if your symptoms worsen, do not improve, or if you have any other problems. Please contact your doctor or call one of the physicians/clinics you have been referred to that are listed on the Patient Visit Information form that is included in your discharge packet. Bring any paperwork you were given at discharge with you along with any medications you are taking to your follow up visit. Our treatment cannot replace ongoing medical care by a primary care provider outside of the emergency department. Thank you for allowing the [facility] team to be part of your care today. Do not drink too much alcohol at once. Continue taking your Keppra as prescribed and follow up with your primary care doctor in 2-3 days. Instructions: Alcohol Abuse and Alcoholism (DC) Forms: [employer] (Icelandic) - Clinical Impression Clinical Impression: Alcohol use, Malingering - Scribe Statement The provider has reviewed the documentation as recorded by the Scribe KP All medical record entries made by the Scribe were at my direction and personally dictated by me. I have reviewed the chart and agree that the record accurately reflects my personal performance of the history, physical exam, medical decision making, and the department course for this patient. I have also personally directed, reviewed, and agree with the discharge instructions and disposition.
== END 2018-06-29 09:47 | disposition home or self-care (01) ==
LOC: C.ER 08:00
DX: Z72.89 Other problems related to lifestyle (principal); Z76.5 Malingerer [conscious simulation]; Z72.0 Tobacco use

== ENCOUNTER 2018-11-11 23:07 | Emergency (ER) | payer MEDICAID, OTHER ==
[2018-11-11 23:08] VITALS: BMI 23.7
--- NOTE | 2018-11-12 00:23 | C.PDOC ---
History Of Present Illness The patient presents to the ED requesting a place to sleep for the night. Patient was brought to the ED by EMS after he was found on the street prior to arrival. Patient was evaluated in [place] ED earlier today. He denies suicidal/homicidal ideation at this time. Time Seen by Provider: 11/12/18 00:21 Chief Complaint (Nursing): Substance Abuse History Per: Patient, EMS History/Exam Limitations: intoxication Onset/Duration Of Symptoms: Hrs Current Symptoms Are (Timing): Gone Suicide/Self Injury Attempted (Context): None Modifying Factor(s): Alcohol Severity: None Pain Scale Rating Of: 0 Associated Symptoms: denies: Suicidal Thoughts, Suicidal Plan Involuntary Hold By: None Recent travel outside of the [place]: No Additional History Per: Patient, EMS Past Medical History Reviewed: Historical Data, Nursing Documentation, Vital Signs - Medical History PMH: Anemia, Anxiety, Back Problems (herniated disc), Deep Vein Thrombosis, Gastritis, Gall Bladder Disease (Cholelithiasis), HTN, Pancreatitis, Pneumonia, Seizures, Chronic Pain (left shoulder) Denies: CHF, Fractures, HIV, Hypercholesterolemia, Chronic Kidney Disease, Sexually Transmitted Disease Surgical History: Endoscopy - [facility] Procedures ALCOHOL DETOXIFICATION (06/14/15) APPLICATION OF SPLINT (07/16/14) CONTINUOUS INVASIVE MECHANICAL VENTILATION <96 CONSEC HRS (04/13/15) CONTROL BLEEDING IN GASTROINTESTINAL TRACT, ENDO (09/29/17) DRAINAGE OF PERITONEAL CAVITY, PERCUTANEOUS APPROACH (06/29/18) ENDO EXCISION/DEST OF LESION OR TISSUE OF STOMACH (04/12/15) ESOPHAGOGASTRODUODENOSCOPY [EGD] W/CLOSED BIOPSY (04/19/15) EXCISION OF ESOPHAGOGASTRIC JUNCTION, ENDO, DIAGN (09/29/17) EXCISION OF ESOPHAGUS, ENDO, DIAGN (03/13/18) EXCISION OF STOMACH, ENDO, DIAGN (06/29/18) INFUSION OF VASOPRESSOR AGENT (04/12/15) INSERTION OF ENDOTRACHEAL AIRWAY INTO TRACHEA, VIA OPENING (10/10/18) INSERTION OF INFUSION DEV INTO R FEMOR VEIN, PERC APPROACH (10/10/18) INSERTION OF INFUSION DEV INTO SUP VENA CAVA, PERC APPROACH (10/10/18) INSPECTION OF UPPER INTESTINAL TRACT, ENDO (10/04/18) INTRA-ABD VENOUS SHUNT (04/13/15) INTRODUCTION OF NUTRITIONAL INTO UP GI, VIA OPENING (10/10/18) INTRODUCTION OF OTHER THERAPEUTIC SUBSTANCE INTO UP GI, ENDO (09/29/17) NEBULIZER THERAPY (04/13/15) PACKED CELL TRANSFUSION (04/19/15) PHERESIS OF PLATELETS, SINGLE (09/29/17) PLATELET TRANSFUSION (04/12/15) RESPIRATORY VENTILATION, GREATER THAN 96 CONSECUTIVE HOURS (10/10/18) SERUM TRANSFUSION NEC (04/13/15) THERAPEUTIC PLATELETPHERESIS (04/13/15) TRANSFUSE NONAUT FRESH PLASMA IN PERIPH VEIN, PERC (03/15/17) TRANSFUSE NONAUT FROZEN PLASMA IN PERIPH VEIN, PERC (06/29/18) TRANSFUSE NONAUT FROZEN RED CELLS IN PERIPH VEIN, PERC (02/21/18) TRANSFUSE NONAUT RED BLOOD CELLS IN CENTRAL VEIN, PERC (10/10/18) TRANSFUSE NONAUT RED BLOOD CELLS IN PERIPH VEIN, PERC (10/04/18) VENOUS CATHETERIZATION NEC (04/12/15) Family History: States: Unknown Family Hx - Social History Hx Tobacco Use: Yes Hx Alcohol Use: Yes Hx Substance Use: No - Immunization History Hx Tetanus Toxoid Vaccination: Yes Hx Influenza Vaccination: Yes Hx Pneumococcal Vaccination: Yes Review Of Systems Constitutional: Negative for: Fever, Chills Cardiovascular: Negative for: Chest Pain, Palpitations Respiratory: Negative for: Cough, Shortness of Breath Gastrointestinal: Negative for: Nausea, Vomiting, Abdominal Pain, Diarrhea Skin: Negative for: Rash, Lesions, Jaundice, Bruising Psych: Positive for: Other (EtOH intoxication ). Negative for: Suicidal i deation Physical Exam - Physical Exam Appears: Non-toxic, No Acute Distress Skin: Warm, Dry Head: Normacephalic Eye(s): bilateral: Normal Inspection Oral Mucosa: Moist, Other (alcohol on breath ) Neck: Supple Chest: Symmetrical, No Deformity Cardiovascular: Rhythm Regular Respiratory: No Accessory Muscle Use Extremity: Normal ROM Neurological/Psych: Other (arousable to touch and verbal stimuli ) ED Course And Treatment O2 Sat by Pulse Oximetry: 96 Pulse Ox Interpretation: Normal Reevaluation Time: 05:52 Reassessment Condition: Improved Disposition Counseled Patient/Family Regarding: Studies Performed, Diagnosis, Need For Followup - Disposition Referrals: [facility] [Outside] Disposition: HOME/ ROUTINE Disposition Time: 00:22 Condition: FAIR Instructions: Alcohol Abuse and Alcoholism (DC) Forms: [facility] (Romanian) - Clinical Impression Clinical Impression: EtOH dependence, Alcohol intoxication - Scribe Statement The provider has reviewed the documentation as recorded by the Scribe (Michell Hi) Provider Attestation: All medical record entries made by the Scribe were at my direction and personally dictated by me. I have reviewed the chart and agree that the record accurately reflects my personal performance of the history, physical exam, medical decision making, and the department course for this patient. I have also personally directed, reviewed, and agree with the discharge instructions and disposition.
[2018-11-12 05:18] VITALS: RESP 16
[2018-11-12 06:42] VITALS: BP 122/78; PULSE 84; TEMP 98.4; O2SAT 98
== END 2018-11-12 06:41 | disposition home or self-care (01) ==
LOC: C.ER 23:07
DX: F10.229 Alcohol dependence with intoxication, unspecified (principal); I10 Essential (primary) hypertension; Z72.0 Tobacco use